=== PATIENT | female | born 1965 | race Caucasian/White ===

== ENCOUNTER 2017-10-06 22:39 | Inpatient (IN) | payer MEDICAID ==
[2017-10-07] MEDS: morphine 4 MG/ML VIAL IV (00:08)
[2017-10-07] MEDS: ONDANSETRON 4 MG INJ IV ×2 (00:09→20:38)
[2017-10-07] MEDS: CEFTRIAXONE 1 GM/50 ML (PMX) 50 ML IVPB (00:14)
[2017-10-07] MEDS: SOD CHLORIDE 0.9% 1,000 ML IV (00:14)
[2017-10-07 00:24] LABS: ADD MAN DIFF? NO
[2017-10-07 00:26] LABS: WHITE BLOOD COUNT 13.6 10^3/ul (4.8-10.8)
[2017-10-07 00:26] LABS: BASOPHIL # 0.1 10^3/ul (0.0-0.1); BASOPHILS % 0.4 % (0.0-2.0); EOSINOPHILS # 0.1 10^3/ul (0.0-0.5); EOSINOPHILS % 0.4 % (0.0-7.0); HEMATOCRIT 32.3 % (37.0-47.0); HEMOGLOBIN 10.9 g/dl (12.0-16.0); LYMPHOCYTES # 0.8 10^3/ul (0.8-2.9); LYMPHOCYTES % 5.9 % (15.0-51.0); MEAN CORPUSCULAR HEMOGLOBIN 30.3 pg (29.0-33.0); MEAN CORPUSCULAR HGB CONC 33.7 g/dl (32.0-37.0); MEAN CORPUSCULAR VOLUME 89.7 fl (82.0-101.0); MEAN PLATELET VOLUME 8.3 fl (7.4-10.4); MONOCYTE # 0.6 10^3/ul (0.3-0.9); MONOCYTES % 4.2 % (0.0-11.0); NEUTROPHIL # 12.1 10^3/ul (1.6-7.5); NEUTROPHILS % 88.7 % (39.0-77.0); PLATELET COUNT 438 10^3/UL (140-415); RED CELL DISTRIBUTION WIDTH 11.5 % (11.5-14.5)
[2017-10-07] MEDS: VANCOMYCIN 1 GM (PMX) 250 ML IVPB (00:42)
[2017-10-07 00:45] LABS: ALANINE AMINOTRANSFERASE 46 IU/L (13-69); ALBUMIN 4.1 g/dl (3.3-4.9); ALBUMIN/GLOBULIN RATIO 1.02; ALKALINE PHOSPHATASE 78 IU/L (42-121); ANION GAP 16 (8-16); ASPARTATE AMINO TRANSFERASE 55 IU/L (15-46); BILIRUBIN,INDIRECT 0.2 mg/dl (0-1.1); BILIRUBIN,TOTAL 0.2 mg/dl (0.2-1.3); BLOOD UREA NITROGEN 17 mg/dl (7-20); CALCIUM 11.1 mg/dl (8.4-10.2); CARBON DIOXIDE 25 mmol/L (21-31); CHLORIDE 102 mmol/L (97-110); CREATININE 0.79 mg/dl (0.44-1.00); GLUCOSE 122 mg/dl (70-220); POTASSIUM 3.9 mmol/L (3.5-5.1); SODIUM 139 mmol/L (135-144); TOTAL PROTEIN 8.1 g/dl (6.1-8.1)
[2017-10-07 01:08] LABS: TROPONIN-I < 0.012 ng/ml (0.000-0.120)
[2017-10-07] MEDS: SOD CHLORIDE 0.9% 100 ML ×2 (01:36→22:21)
[2017-10-07] MEDS: IOHEXOL 300MG/ML 150 ML BTL ×2 (01:36→22:22)
[2017-10-07] MEDS: morphine 2 MG INJ IV (05:08)
[2017-10-07 05:52] LABS: ADD MAN DIFF? NO
[2017-10-07 05:54] LABS: BASOPHILS % 0.3 % (0.0-2.0); EOSINOPHILS # 0.1 10^3/ul (0.0-0.5); EOSINOPHILS % 0.8 % (0.0-7.0); HEMATOCRIT 29.5 % (37.0-47.0); HEMOGLOBIN 9.9 g/dl (12.0-16.0); LYMPHOCYTES # 1.7 10^3/ul (0.8-2.9); LYMPHOCYTES % 18.1 % (15.0-51.0); MEAN CORPUSCULAR HEMOGLOBIN 30.4 pg (29.0-33.0); MEAN CORPUSCULAR HGB CONC 33.6 g/dl (32.0-37.0); MEAN CORPUSCULAR VOLUME 90.5 fl (82.0-101.0); MEAN PLATELET VOLUME 8.6 fl (7.4-10.4); MONOCYTES % 10.3 % (0.0-11.0); NEUTROPHIL # 6.7 10^3/ul (1.6-7.5); NEUTROPHILS % 70.3 % (39.0-77.0); PLATELET COUNT 391 10^3/UL (140-415); RED BLOOD COUNT 3.26 10^6/ul (4.20-5.40); RED CELL DISTRIBUTION WIDTH 11.9 % (11.5-14.5)
[2017-10-07 05:54] LABS: WHITE BLOOD COUNT 9.5 10^3/ul (4.8-10.8)
[2017-10-07 06:19] LABS: ANION GAP 12 (8-16); BLOOD UREA NITROGEN 15 mg/dl (7-20); CALCIUM 10.2 mg/dl (8.4-10.2); CARBON DIOXIDE 24 mmol/L (21-31); CHLORIDE 110 mmol/L (97-110); CREATININE 0.73 mg/dl (0.44-1.00); GLUCOSE 93 mg/dl (70-220); POTASSIUM 4.4 mmol/L (3.5-5.1); SODIUM 142 mmol/L (135-144)
[2017-10-07] MEDS ORDERED: HYDROCODONE/APAP (5/325) TAB PO (12:30)
[2017-10-07] MEDS: HYDROCODONE/APAP (5/325) TAB PO ×3 (12:38→22:08)
[2017-10-07] MEDS ORDERED: morphine 2 MG INJ IV (13:00)
[2017-10-07 13:42] LABS: PROTIME 13.3 Sec (11.9-14.9)
[2017-10-07 13:43] LABS: PARTIAL THROMBOPLASTIN TIME 28.8 Sec (25.0-35.0)
[2017-10-07] MEDS ORDERED: morphine LIQ (10 MG/5 ML) CUP PO (15:00)
[2017-10-07] MEDS: BARIUM SULF 2% 450 ML BTL (BERRY SMOOTHIE) PO (18:27)
[2017-10-08 05:48] LABS: ADD MAN DIFF? NO
[2017-10-08 05:53] LABS: BASOPHIL # 0.1 10^3/ul (0.0-0.1); BASOPHILS % 0.7 % (0.0-2.0); EOSINOPHILS # 0.3 10^3/ul (0.0-0.5); EOSINOPHILS % 4.2 % (0.0-7.0); HEMATOCRIT 28.9 % (37.0-47.0); HEMOGLOBIN 9.5 g/dl (12.0-16.0); LYMPHOCYTES # 1.9 10^3/ul (0.8-2.9); LYMPHOCYTES % 26.8 % (15.0-51.0); MEAN CORPUSCULAR HGB CONC 32.9 g/dl (32.0-37.0); MEAN CORPUSCULAR VOLUME 91.2 fl (82.0-101.0); MEAN PLATELET VOLUME 8.4 fl (7.4-10.4); NEUTROPHIL # 3.8 10^3/ul (1.6-7.5); NEUTROPHILS % 54.2 % (39.0-77.0); PLATELET COUNT 390 10^3/UL (140-415); RED BLOOD COUNT 3.17 10^6/ul (4.20-5.40); RED CELL DISTRIBUTION WIDTH 11.8 % (11.5-14.5)
[2017-10-08 05:53] LABS: WHITE BLOOD COUNT 7.1 10^3/ul (4.8-10.8)
[2017-10-08] MEDS: HYDROCODONE/APAP (5/325) TAB PO ×3 (06:07→23:55)
[2017-10-08 06:21] LABS: ANION GAP 14 (8-16); BLOOD UREA NITROGEN 11 mg/dl (7-20); CALCIUM 10.2 mg/dl (8.4-10.2); CARBON DIOXIDE 26 mmol/L (21-31); CHLORIDE 104 mmol/L (97-110); CREATININE 0.73 mg/dl (0.44-1.00); GLUCOSE 80 mg/dl (70-220); PHOSPHORUS 3.1 mg/dl (2.5-4.9); POTASSIUM 4.1 mmol/L (3.5-5.1); SODIUM 140 mmol/L (135-144)
[2017-10-08] MEDS: HYDROCHLOROTHIAZIDE 25 MG TAB PO (08:33)
[2017-10-08] MEDS: LISINOPRIL 10 MG TAB PO (08:34)
[2017-10-08] MEDS: ONDANSETRON 4 MG INJ IV (08:39)
[2017-10-08 11:22] LABS: CA27.29 182 U/mL (<38)
[2017-10-08 16:41] LABS: CANCER ANTIGEN 15-3 120 U/mL (<32)
[2017-10-09] MEDS: SENNA TAB PO ×3 (01:00→21:00)
[2017-10-09] MEDS: HYDROCODONE/APAP (5/325) TAB PO ×2 (08:24→22:53)
[2017-10-09] MEDS: HYDROCHLOROTHIAZIDE 25 MG TAB PO (08:24)
[2017-10-09] MEDS: LISINOPRIL 10 MG TAB PO (08:24)
[2017-10-09] MEDS: ONDANSETRON 4 MG INJ IV (12:50)
[2017-10-09] MEDS: MAGNESIUM HYDROXIDE 30ML CUP PO (12:53)
[2017-10-09] MEDS: DEXAMETHASONE 2 MG TAB PO ×3 (17:32→22:53)
[2017-10-10] MEDS: DEXAMETHASONE 2 MG TAB PO ×2 (08:30→13:07)
[2017-10-10] MEDS: SENNA TAB PO (08:31)
[2017-10-10] MEDS: LISINOPRIL 10 MG TAB PO (09:31)
[2017-10-10] MEDS: HYDROCHLOROTHIAZIDE 25 MG TAB PO (09:31)
== END 2017-10-10 15:05 | disposition home health service (06) | DRG 597 ==
LOC: E/R 22:39 → PP2 10-07 01:16
DX: C50.412 Malignant neoplasm of upper-outer quadrant of left female breast (principal); G93.6 Cerebral edema; C77.3 Secondary and unspecified malignant neoplasm of axilla and upper limb lymph nodes; C77.0 Secondary and unspecified malignant neoplasm of lymph nodes of head, face and neck; C79.31 Secondary malignant neoplasm of brain; I10 Essential (primary) hypertension
CPT/HCPCS: 36415; 70552; 71260; 74178; 76641; 78306; 80048; 80053; 83735; 84100; 84484; 85025; 85610; 85730; 86300; 96361; 96374; 96375; 99285-25; A9503

== ENCOUNTER 2017-11-30 21:07 | Inpatient (IN) | payer MEDICAID ==
[2017-11-30] MEDS: ONDANSETRON 4 MG INJ IV (22:28)
[2017-11-30] MEDS: morphine 4 MG/ML VIAL IV (22:28)
[2017-11-30] MEDS: ACETAMINOPHEN 325 MG TAB PO (22:28)
[2017-11-30] MEDS: SODIUM CHLORIDE 0.9% 1L BAG IV* (22:29)
[2017-11-30 22:30] LABS: WHITE BLOOD COUNT 8.2 10^3/ul (4.8-10.8)
[2017-11-30 22:30] LABS: ABNORMAL IP MESSAGE 1; HEMATOCRIT 23.9 % (37.0-47.0); HEMOGLOBIN 7.6 g/dl (12.0-16.0); MEAN CORPUSCULAR HEMOGLOBIN 27.9 pg (29.0-33.0); MEAN CORPUSCULAR HGB CONC 31.8 g/dl (32.0-37.0); MEAN CORPUSCULAR VOLUME 87.9 fl (82.0-101.0); MEAN PLATELET VOLUME 9.2 fl (7.4-10.4); PLATELET COUNT 194 10^3/UL (140-415); RED BLOOD COUNT 2.72 10^6/ul (4.20-5.40); RED CELL DISTRIBUTION WIDTH 14.1 % (11.5-14.5)
[2017-11-30 22:33] LABS: POSITIVE DIFF @See below
[2017-11-30 22:34] LABS: ADD MAN DIFF? YES
[2017-11-30 22:52] LABS: BAND NEUTROPHILS #M 0.6 10^3/ul (0.0-0.6); BAND NEUTROPHILS % (M) 8 % (0-4); BASOPHIL # 0.1 10^3/ul (0.0-0.1); BASOPHILS % 0.7 % (0.0-2.0); HYPOCHROMASIA 2+ (0-0); LYMPHOCYTES #M 0.4 10^3/ul (0.8-2.9); LYMPHOCYTES % (M) 5 % (15-51); MONOCYTE #M 0.1 10^3/ul (0.3-0.9); MONOCYTES % (M) 2 % (0-11); PLATELET ESTIMATE NORMAL; POLYCHROMASIA 3+ (0-0); REACTIVE LYMPHOCYTES #M 0.4 10^3/ul (0.0-0.0); REACTIVE LYMPHOCYTES% (M) 5 % (0-0); SEG NEUT #M 6.6 10^3/ul (1.6-7.5); SEGMENTED NEUTROPHILS (M) % 80 % (39-77); SMUDGE%M 17 % (0-0)
[2017-11-30 23:00] LABS: ALANINE AMINOTRANSFERASE 60 IU/L (13-69); ALBUMIN 2.4 g/dl (3.3-4.9); ALBUMIN/GLOBULIN RATIO 0.77; ALKALINE PHOSPHATASE 73 IU/L (42-121); ANION GAP 10 (8-16); ASPARTATE AMINO TRANSFERASE 109 IU/L (15-46); BILIRUBIN,INDIRECT 0.2 mg/dl (0-1.1); BILIRUBIN,TOTAL 0.2 mg/dl (0.2-1.3); BLOOD UREA NITROGEN 35 mg/dl (7-20); CALCIUM 9.5 mg/dl (8.4-10.2); CARBON DIOXIDE 29 mmol/L (21-31); CHLORIDE 101 mmol/L (97-110); CREATININE 0.93 mg/dl (0.44-1.00); GLUCOSE 82 mg/dl (70-220); LIPASE 30 U/L (23-300); POTASSIUM 3.9 mmol/L (3.5-5.1); SODIUM 136 mmol/L (135-144); TOTAL PROTEIN 5.5 g/dl (6.1-8.1)
[2017-11-30] MEDS: CEFEPIME 2GM/50 ML (PMX) 50 ML IVPB (23:00)
[2017-11-30 23:05] LABS: TROPONIN-I 0.013 ng/ml (0.000-0.120)
[2017-11-30 23:08] LABS: LACTIC ACID 1.5 mmol/L (0.5-2.0)
[2017-11-30 23:12] LABS: INR 0.93; PROTIME 12.5 Sec (11.9-14.9)
[2017-11-30 23:13] LABS: PARTIAL THROMBOPLASTIN TIME 30.3 Sec (25.0-35.0)
[2017-11-30] MEDS: VANCOMYCIN 1 GM (PMX) 250 ML IVPB (23:59)
[2017-12-01] MEDS: HYDROmorphONE 0.5 MG/0.5 ML SYG IV (00:17)
[2017-12-01] MEDS ORDERED: ALBUTEROL/IPRATROPIUM (NEB) 3 ML AMP HHN (00:30)
[2017-12-01] MEDS ORDERED: NACL 0.9% 3 ML SYG IV (00:30)
[2017-12-01 01:48] LABS: LACTIC ACID 0.9 mmol/L (0.5-2.0)
[2017-12-01] MEDS: SOD CHLORIDE 0.9% 1,000 ML IV ×3 (02:21→13:15)
[2017-12-01] MEDS: HYDROCODONE/APAP (5/325) TAB PO ×3 (04:26→21:46)
[2017-12-01 06:06] LABS: ABNORMAL IP MESSAGE 1; HEMOGLOBIN 7.1 g/dl (12.0-16.0); MEAN CORPUSCULAR HEMOGLOBIN 27.5 pg (29.0-33.0); MEAN CORPUSCULAR HGB CONC 30.9 g/dl (32.0-37.0); MEAN CORPUSCULAR VOLUME 89.1 fl (82.0-101.0); MEAN PLATELET VOLUME 9.6 fl (7.4-10.4); PLATELET COUNT 173 10^3/UL (140-415); RED BLOOD COUNT 2.58 10^6/ul (4.20-5.40); RED CELL DISTRIBUTION WIDTH 14.1 % (11.5-14.5)
[2017-12-01 06:06] LABS: WHITE BLOOD COUNT 4.6 10^3/ul (4.8-10.8)
[2017-12-01 06:12] LABS: ADD MAN DIFF? YES; POSITIVE DIFF @See below
[2017-12-01 06:38] LABS: LACTIC ACID 1.4 mmol/L (0.5-2.0)
[2017-12-01 06:38] LABS: IRON 63 ug/dl (35-150)
[2017-12-01 06:47] LABS: % IRON SATURATION 27 % SAT (22-52); TOTAL IRON BINDING CAPACITY 234 ug/dl (241-421)
[2017-12-01 06:53] LABS: ALANINE AMINOTRANSFERASE 63 IU/L (13-69); ALBUMIN/GLOBULIN RATIO 0.74; ALKALINE PHOSPHATASE 60 IU/L (42-121); ANION GAP 7 (8-16); ASPARTATE AMINO TRANSFERASE 103 IU/L (15-46); BILIRUBIN,INDIRECT 0.1 mg/dl (0-1.1); BILIRUBIN,TOTAL 0.1 mg/dl (0.2-1.3); BLOOD UREA NITROGEN 28 mg/dl (7-20); CALCIUM 8.2 mg/dl (8.4-10.2); CARBON DIOXIDE 24 mmol/L (21-31); CHLORIDE 109 mmol/L (97-110); CREATININE 0.72 mg/dl (0.44-1.00); GLUCOSE 83 mg/dl (70-220); POTASSIUM 3.3 mmol/L (3.5-5.1); SODIUM 137 mmol/L (135-144); TOTAL PROTEIN 4.7 g/dl (6.1-8.1)
[2017-12-01 07:15] LABS: ADD UMIC YES; UR ASCORBIC ACID NEGATIVE (NEGATIVE); UR BACTERIA MANY /HPF (NONE SEEN); UR BILIRUBIN (Dip) NEGATIVE (NEGATIVE); UR BLOOD (Dip) 1+ mg/dL (NEGATIVE); UR CLARITY CLOUDY (CLEAR); UR COLOR YELLOW (YELLOW); UR GLUCOSE (Dip) NEGATIVE (NEGATIVE); UR KETONES (Dip) TRACE mg/dL (NEGATIVE); UR LEUKOCYTE ESTERASE (Dip) 3+ Leu/ul (NEGATIVE); UR NITRITE (Dip) POSITIVE (NEGATIVE); UR NONSQUAMOUS EPITHELIAL CELL 1 /HPF (NONE SEEN); UR RBC 3 /HPF (0-5); UR SPECIFIC GRAVITY (Dip) 1.014 (1.003-1.030); UR TOTAL PROTEIN (Dip) NEGATIVE (NEGATIVE); UR UROBILINOGEN (Dip) NEGATIVE (NEGATIVE); UR WBC > 182 /HPF (0-5)
[2017-12-01 08:22] LABS: BAND NEUTROPHILS % (M) 1 % (0-4); LYMPHOCYTES #M 0.1 10^3/ul (0.8-2.9); LYMPHOCYTES % (M) 4 % (15-51); PLATELET ESTIMATE NORMAL; SEG NEUT #M 4.4 10^3/ul (1.6-7.5); SEGMENTED NEUTROPHILS (M) % 95 % (39-77); SMUDGE%M 8 % (0-0)
[2017-12-01] MEDS: CEFEPIME 1GM/50 ML (PMX) 50 ML IVPB ×2 (08:22→22:06)
[2017-12-01] MEDS: ONDANSETRON 4 MG INJ IV ×2 (08:28→17:49)
[2017-12-01] MEDS ORDERED: ENOXAPARIN 40 MG/0.4 ML SYG SC (09:00)
[2017-12-01] MEDS: POTASSIUM CHLORIDE 20 MEQ POWDER FOR ORAL SOLN PO (15:55)
[2017-12-01] MEDS: morphine 2 MG INJ IV (15:55)
[2017-12-01] MEDS ORDERED: morphine 2 MG INJ IV (18:00)
[2017-12-02] MEDS: ONDANSETRON 4 MG INJ IV (05:25)
[2017-12-02 05:28] LABS: ABNORMAL IP MESSAGE 1; HEMATOCRIT 23.4 % (37.0-47.0); HEMOGLOBIN 7.3 g/dl (12.0-16.0); MEAN CORPUSCULAR HEMOGLOBIN 27.7 pg (29.0-33.0); MEAN CORPUSCULAR HGB CONC 31.2 g/dl (32.0-37.0); MEAN CORPUSCULAR VOLUME 88.6 fl (82.0-101.0); MEAN PLATELET VOLUME 9.4 fl (7.4-10.4); PLATELET COUNT 163 10^3/UL (140-415); RED BLOOD COUNT 2.64 10^6/ul (4.20-5.40); RED CELL DISTRIBUTION WIDTH 13.9 % (11.5-14.5)
[2017-12-02 05:40] LABS: ADD MAN DIFF? YES; POSITIVE DIFF @See below
[2017-12-02 05:42] LABS: ANION GAP 7 (8-16); BLOOD UREA NITROGEN 19 mg/dl (7-20); CALCIUM 7.9 mg/dl (8.4-10.2); CARBON DIOXIDE 24 mmol/L (21-31); CHLORIDE 111 mmol/L (97-110); CREATININE 0.63 mg/dl (0.44-1.00); GLUCOSE 66 mg/dl (70-220); MAGNESIUM 1.7 mg/dl (1.7-2.5); PHOSPHORUS 3.3 mg/dl (2.5-4.9); POTASSIUM 3.7 mmol/L (3.5-5.1); SODIUM 138 mmol/L (135-144)
[2017-12-02] MEDS: HYDROCODONE/APAP (5/325) TAB PO ×3 (07:52→21:03)
[2017-12-02 08:32] LABS: BAND NEUTROPHILS #M 0.1 10^3/ul (0.0-0.6); BAND NEUTROPHILS % (M) 11 % (0-4); BASOPHILS % (M) 1 % (0-2); EOSINOPHILS % (M) 2 % (0-7); ERYTHROBLAST% (NRBC) (M) 2 % (0-0); LYMPHOCYTES #M 0.4 10^3/ul (0.8-2.9); LYMPHOCYTES % (M) 41 % (15-51); PLATELET ESTIMATE NORMAL; SEG NEUT #M 0.5 10^3/ul (1.6-7.5); SEGMENTED NEUTROPHILS (M) % 45 % (39-77); SMUDGE%M 13 % (0-0)
[2017-12-02] MEDS: CEFEPIME 1GM/50 ML (PMX) 50 ML IVPB ×2 (08:53→21:00)
[2017-12-02] MEDS ORDERED: morphine LIQ (10 MG/5 ML) CUP PO (16:00)
[2017-12-02] MEDS: FILGRASTIM 300 MCG INJ SC (17:43)
[2017-12-03] MEDS: HYDROCODONE/APAP (5/325) TAB PO ×3 (08:17→21:22)
[2017-12-03] MEDS: CEFEPIME 1GM/50 ML (PMX) 50 ML IVPB ×2 (08:18→21:16)
[2017-12-03 09:53] LABS: WHITE BLOOD COUNT 0.5 10^3/ul (4.8-10.8)
[2017-12-03 09:53] LABS: ABNORMAL IP MESSAGE 1; HEMATOCRIT 24.8 % (37.0-47.0); HEMOGLOBIN 7.8 g/dl (12.0-16.0); MEAN CORPUSCULAR HEMOGLOBIN 27.8 pg (29.0-33.0); MEAN CORPUSCULAR HGB CONC 31.5 g/dl (32.0-37.0); MEAN CORPUSCULAR VOLUME 88.3 fl (82.0-101.0); MEAN PLATELET VOLUME 8.9 fl (7.4-10.4); PLATELET COUNT 151 10^3/UL (140-415); RED BLOOD COUNT 2.81 10^6/ul (4.20-5.40); RED CELL DISTRIBUTION WIDTH 13.4 % (11.5-14.5)
[2017-12-03 09:54] LABS: POSITIVE DIFF @See below
[2017-12-03 09:55] LABS: ADD MAN DIFF? YES
[2017-12-03 11:13] LABS: BAND NEUTROPHILS % (M) 8 % (0-4); BASOPHILS % (M) 1 % (0-2); GIANT THROMBO% (M) 3 % (0-0); LYMPHOCYTES #M 0.2 10^3/ul (0.8-2.9); LYMPHOCYTES % (M) 54 % (15-51); METAMYELOCYTES %M 1 % (0-0); MONOCYTES % (M) 12 % (0-11); MYELOCYTES % (M) 2 % (0-0); PLATELET ESTIMATE NORMAL; POLYCHROMASIA 2+ (0-0); REACTIVE LYMPHOCYTES% (M) 2 % (0-0); SEG NEUT #M 0.1 10^3/ul (1.6-7.5); SEGMENTED NEUTROPHILS (M) % 20 % (39-77); SMUDGE%M 26 % (0-0)
[2017-12-03] MEDS ORDERED: VANCOMYCIN IV PER PHARMACY XX (12:00)
[2017-12-03] MEDS: VANCOMYCIN 1.5 GM in SOD CHLORIDE 0.9% 250 ML IVPB (13:41)
[2017-12-03] MEDS: FILGRASTIM 300 MCG INJ SC (16:14)
[2017-12-04] MEDS ORDERED: VANCOMYCIN 750 MG in SOD CHLORIDE 0.9% 150 ML IVPB (01:00)
[2017-12-04] MEDS: VANCOMYCIN 1 GM 250 ML IVPB ×2 (02:42→14:25)
[2017-12-04] MEDS: HYDROCODONE/APAP (5/325) TAB PO ×3 (04:03→18:09)
[2017-12-04 06:46] LABS: WHITE BLOOD COUNT 0.7 10^3/ul (4.8-10.8)
[2017-12-04 06:46] LABS: ABNORMAL IP MESSAGE 1; HEMATOCRIT 23.2 % (37.0-47.0); HEMOGLOBIN 7.3 g/dl (12.0-16.0); MEAN CORPUSCULAR HGB CONC 31.5 g/dl (32.0-37.0); MEAN CORPUSCULAR VOLUME 88.9 fl (82.0-101.0); MEAN PLATELET VOLUME 9.6 fl (7.4-10.4); PLATELET COUNT 173 10^3/UL (140-415); RED BLOOD COUNT 2.61 10^6/ul (4.20-5.40); RED CELL DISTRIBUTION WIDTH 13.7 % (11.5-14.5)
[2017-12-04 06:55] LABS: ADD MAN DIFF? YES; POSITIVE DIFF @See below
[2017-12-04 08:32] LABS: BAND NEUTROPHILS % (M) 7 % (0-4); BASOPHILS % (M) 1 % (0-2); EOSINOPHILS % (M) 2 % (0-7); ERYTHROBLAST% (NRBC) (M) 5 % (0-0); GIANT THROMBO% (M) 6 % (0-0); LYMPHOCYTES #M 0.4 10^3/ul (0.8-2.9); LYMPHOCYTES % (M) 59 % (15-51); MONOCYTES % (M) 13 % (0-11); MYELOCYTES % (M) 1 % (0-0); PLATELET ESTIMATE NORMAL; POLYCHROMASIA 3+ (0-0); SEG NEUT #M 0.1 10^3/ul (1.6-7.5); SEGMENTED NEUTROPHILS (M) % 17 % (39-77); SMUDGE%M 15 % (0-0)
[2017-12-04] MEDS: CEFEPIME 1GM/50 ML (PMX) 50 ML IVPB ×2 (08:46→20:41)
[2017-12-04] MEDS: DIPHENOXYLATE/ATROPINE TAB PO ×2 (12:09→18:09)
[2017-12-04] MEDS: FILGRASTIM 300 MCG INJ SC (16:28)
[2017-12-04] MEDS: ONDANSETRON 4 MG INJ IV (17:59)
[2017-12-05] MEDS: HYDROCODONE/APAP (5/325) TAB PO ×4 (01:34→20:27)
[2017-12-05] MEDS: ONDANSETRON 4 MG INJ IV ×4 (01:34→23:24)
[2017-12-05 03:18] LABS: VANCOMYCIN,TROUGH 12.4 ug/ml (10.0-20.0)
[2017-12-05] MEDS: VANCOMYCIN 1 GM 250 ML IVPB ×2 (03:47→13:46)
[2017-12-05] MEDS: DIPHENOXYLATE/ATROPINE TAB PO ×2 (06:38→18:46)
[2017-12-05] MEDS: CEFEPIME 1GM/50 ML (PMX) 50 ML IVPB ×2 (08:34→20:27)
[2017-12-05 09:14] LABS: WHITE BLOOD COUNT 5.2 10^3/ul (4.8-10.8)
[2017-12-05 09:14] LABS: ABNORMAL IP MESSAGE 1; HEMATOCRIT 27.7 % (37.0-47.0); HEMOGLOBIN 8.5 g/dl (12.0-16.0); MEAN CORPUSCULAR HEMOGLOBIN 27.2 pg (29.0-33.0); MEAN CORPUSCULAR HGB CONC 30.7 g/dl (32.0-37.0); MEAN CORPUSCULAR VOLUME 88.5 fl (82.0-101.0); NUCLEATED RED BLOOD CELLS% 0.4 /100WBC (0.0-0.0); RED BLOOD COUNT 3.13 10^6/ul (4.20-5.40); RED CELL DISTRIBUTION WIDTH 13.5 % (11.5-14.5)
[2017-12-05 09:17] LABS: ADD MAN DIFF? YES; PLATELET COUNT 208 10^3/UL (140-415); POSITIVE DIFF @See below
[2017-12-05 09:43] LABS: ANION GAP 14 (8-16); BLOOD UREA NITROGEN 11 mg/dl (7-20); CALCIUM 7.9 mg/dl (8.4-10.2); CARBON DIOXIDE 19 mmol/L (21-31); CHLORIDE 111 mmol/L (97-110); CREATININE 0.42 mg/dl (0.44-1.00); GLUCOSE 82 mg/dl (70-220); POTASSIUM 3.8 mmol/L (3.5-5.1); SODIUM 140 mmol/L (135-144)
[2017-12-05 09:56] LABS: BAND NEUTROPHILS #M 0.4 10^3/ul (0.0-0.6); BAND NEUTROPHILS % (M) 9 % (0-4); LYMPHOCYTES #M 0.6 10^3/ul (0.8-2.9); LYMPHOCYTES % (M) 12 % (15-51); MONOCYTES % (M) 19 % (0-11); REACTIVE LYMPHOCYTES% (M) 1 % (0-0); SEGMENTED NEUTROPHILS (M) % 58 % (39-77)
[2017-12-05 09:57] LABS: BASOPHILS % (M) 1 % (0-2); BURR CELLS 2+ (0-0); MONOCYTE #M 0.9 10^3/ul (0.3-0.9); PLATELET ESTIMATE NORMAL; POIKILOCYTOSIS 2+ (0-0); POLYCHROMASIA 3+ (0-0); SMUDGE%M 2 % (0-0)
[2017-12-05] MEDS: METOCLOPRAMIDE 10 MG INJ IV (18:41)
[2017-12-05] MEDS: LOPERAMIDE 2 MG CAP PO (20:39)
[2017-12-06] MEDS: HYDROCODONE/APAP (5/325) TAB PO ×3 (02:59→18:36)
[2017-12-06] MEDS: DIPHENOXYLATE/ATROPINE TAB PO ×2 (03:09→08:43)
[2017-12-06 06:55] LABS: ADD MAN DIFF? NO
[2017-12-06 06:57] LABS: WHITE BLOOD COUNT 8.5 10^3/ul (4.8-10.8)
[2017-12-06 06:57] LABS: ABNORMAL IP MESSAGE 1; BASOPHILS % 0.4 % (0.0-2.0); EOSINOPHILS % 0.2 % (0.0-7.0); HEMATOCRIT 24.7 % (37.0-47.0); HEMOGLOBIN 7.7 g/dl (12.0-16.0); LYMPHOCYTES # 0.6 10^3/ul (0.8-2.9); LYMPHOCYTES % 6.7 % (15.0-51.0); MEAN CORPUSCULAR HEMOGLOBIN 26.9 pg (29.0-33.0); MEAN CORPUSCULAR HGB CONC 31.2 g/dl (32.0-37.0); MEAN CORPUSCULAR VOLUME 86.4 fl (82.0-101.0); MEAN PLATELET VOLUME 9.6 fl (7.4-10.4); MONOCYTE # 1.2 10^3/ul (0.3-0.9); MONOCYTES % 13.5 % (0.0-11.0); NEUTROPHILS % 69.9 % (39.0-77.0); NUCLEATED RED BLOOD CELLS% 0.5 /100WBC (0.0-0.0); PLATELET COUNT 211 10^3/UL (140-415); RED BLOOD COUNT 2.86 10^6/ul (4.20-5.40); RED CELL DISTRIBUTION WIDTH 13.6 % (11.5-14.5)
[2017-12-06 07:09] LABS: POSITIVE DIFF @See below
[2017-12-06 08:41] LABS: BAND NEUTROPHILS #M 1.4 10^3/ul (0.0-0.6); BAND NEUTROPHILS % (M) 17 % (0-4); GIANT THROMBO% (M) 1 % (0-0); LYMPHOCYTES #M 0.5 10^3/ul (0.8-2.9); LYMPHOCYTES % (M) 7 % (15-51); MONOCYTE #M 0.9 10^3/ul (0.3-0.9); MONOCYTES % (M) 11 % (0-11); MYELOCYTES % (M) 1 % (0-0); PLATELET ESTIMATE NORMAL; POLYCHROMASIA 2+ (0-0); REACTIVE LYMPHOCYTES #M 0.3 10^3/ul (0.0-0.0); REACTIVE LYMPHOCYTES% (M) 4 % (0-0); SEG NEUT #M 5.2 10^3/ul (1.6-7.5); SEGMENTED NEUTROPHILS (M) % 60 % (39-77); SMUDGE%M 30 % (0-0)
[2017-12-06] MEDS: CEFEPIME 1GM/50 ML (PMX) 50 ML IVPB (08:43)
[2017-12-06] MEDS: LOPERAMIDE 2 MG CAP PO (13:30)
[2017-12-06] MEDS: DEXTROSE 5%-0.45% NACL 1,000 ML IV (15:00)
[2017-12-06] MEDS: ONDANSETRON 4 MG INJ IV (15:14)
[2017-12-06] MEDS: OCTREOTIDE 50 MCG INJ SC (20:23)
[2017-12-07] MEDS: HYDROCODONE/APAP (5/325) TAB PO ×3 (00:19→19:56)
[2017-12-07 04:07] LABS: IMMEDIATE SPIN CROSSMATCH 1 2
[2017-12-07 09:21] LABS: ABNORMAL IP MESSAGE 1; HEMATOCRIT 29.5 % (37.0-47.0); HEMOGLOBIN 9.5 g/dl (12.0-16.0); MEAN CORPUSCULAR HEMOGLOBIN 26.9 pg (29.0-33.0); MEAN CORPUSCULAR HGB CONC 32.2 g/dl (32.0-37.0); MEAN CORPUSCULAR VOLUME 83.6 fl (82.0-101.0); MEAN PLATELET VOLUME 9.2 fl (7.4-10.4); NUCLEATED RED BLOOD CELLS% 0.8 /100WBC (0.0-0.0); PLATELET COUNT 207 10^3/UL (140-415); RED BLOOD COUNT 3.53 10^6/ul (4.20-5.40); RED CELL DISTRIBUTION WIDTH 14.6 % (11.5-14.5)
[2017-12-07 09:21] LABS: WHITE BLOOD COUNT 7.9 10^3/ul (4.8-10.8)
[2017-12-07 09:23] LABS: POSITIVE DIFF @See below
[2017-12-07 09:24] LABS: ADD MAN DIFF? YES
[2017-12-07] MEDS: DEXTROSE 5%-0.45% NACL 1,000 ML IV (09:36)
[2017-12-07] MEDS: ONDANSETRON 4 MG INJ IV (09:36)
[2017-12-07] MEDS: PEG/ELECTROLYTES 4L BTL PO (09:37)
[2017-12-07] MEDS: OCTREOTIDE 50 MCG INJ SC ×3 (09:37→21:00)
[2017-12-07 10:07] LABS: ANISOCYTOSIS 1+ (0-0); BAND NEUTROPHILS #M 0.1 10^3/ul (0.0-0.6); BAND NEUTROPHILS % (M) 2 % (0-4); LYMPHOCYTES #M 0.4 10^3/ul (0.8-2.9); LYMPHOCYTES % (M) 6 % (15-51); MICROCYTOSIS 1+ (0-0); MONOCYTE #M 1.1 10^3/ul (0.3-0.9); MONOCYTES % (M) 14 % (0-11); MYELOCYTES #M 0.2 10^3/ul (0.0-0.0); MYELOCYTES % (M) 3 % (0-0); PLATELET ESTIMATE NORMAL; POLYCHROMASIA 2+ (0-0); PROMYELOCYTES % (M) 1 % (0-0); SEG NEUT #M 5.9 10^3/ul (1.6-7.5); SEGMENTED NEUTROPHILS (M) % 74 % (39-77); SMUDGE%M 16 % (0-0)
[2017-12-08] MEDS: HYDROCODONE/APAP (5/325) TAB PO ×3 (05:22→23:08)
[2017-12-08 05:58] LABS: ABNORMAL IP MESSAGE 1; HEMATOCRIT 30.9 % (37.0-47.0); HEMOGLOBIN 9.9 g/dl (12.0-16.0); MEAN CORPUSCULAR HEMOGLOBIN 26.7 pg (29.0-33.0); MEAN CORPUSCULAR VOLUME 83.3 fl (82.0-101.0); MEAN PLATELET VOLUME 9.1 fl (7.4-10.4); NUCLEATED RED BLOOD CELLS% 0.6 /100WBC (0.0-0.0); PLATELET COUNT 215 10^3/UL (140-415); RED BLOOD COUNT 3.71 10^6/ul (4.20-5.40); RED CELL DISTRIBUTION WIDTH 15.7 % (11.5-14.5)
[2017-12-08 05:58] LABS: WHITE BLOOD COUNT 7.8 10^3/ul (4.8-10.8)
[2017-12-08 06:17] LABS: ADD MAN DIFF? YES; POSITIVE DIFF @See below
[2017-12-08 07:52] LABS: ANISOCYTOSIS 1+ (0-0); BAND NEUTROPHILS #M 0.2 10^3/ul (0.0-0.6); BAND NEUTROPHILS % (M) 3 % (0-4); LYMPHOCYTES #M 0.7 10^3/ul (0.8-2.9); LYMPHOCYTES % (M) 9 % (15-51); METAMYELOCYTES #M 0.1 10^3/ul (0.0-0.0); METAMYELOCYTES %M 2 % (0-0); MONOCYTE #M 0.3 10^3/ul (0.3-0.9); MONOCYTES % (M) 4 % (0-11); PLATELET ESTIMATE NORMAL; POLYCHROMASIA 2+ (0-0); SEG NEUT #M 6.4 10^3/ul (1.6-7.5); SEGMENTED NEUTROPHILS (M) % 82 % (39-77); SMUDGE%M 7 % (0-0)
[2017-12-08] MEDS: OCTREOTIDE 50 MCG INJ SC ×3 (09:00→22:25)
[2017-12-08 13:20] LABS: ABNORMAL IP MESSAGE 1; HEMATOCRIT 36.5 % (37.0-47.0); HEMOGLOBIN 11.4 g/dl (12.0-16.0); MEAN CORPUSCULAR HEMOGLOBIN 27.1 pg (29.0-33.0); MEAN CORPUSCULAR HGB CONC 31.2 g/dl (32.0-37.0); MEAN CORPUSCULAR VOLUME 86.7 fl (82.0-101.0); MEAN PLATELET VOLUME 9.3 fl (7.4-10.4); NUCLEATED RED BLOOD CELLS% 0.3 /100WBC (0.0-0.0); PLATELET COUNT 200 10^3/UL (140-415); RED BLOOD COUNT 4.21 10^6/ul (4.20-5.40); RED CELL DISTRIBUTION WIDTH 15.8 % (11.5-14.5)
[2017-12-08 13:27] LABS: ADD MAN DIFF? YES; POSITIVE DIFF @See below
[2017-12-08 13:36] LABS: ANION GAP 12 (8-16); BLOOD UREA NITROGEN 14 mg/dl (7-20); CALCIUM 8.5 mg/dl (8.4-10.2); CARBON DIOXIDE 23 mmol/L (21-31); CHLORIDE 107 mmol/L (97-110); CREATININE 0.51 mg/dl (0.44-1.00); GLUCOSE 81 mg/dl (70-220); POTASSIUM 3.6 mmol/L (3.5-5.1); SODIUM 138 mmol/L (135-144)
[2017-12-08 13:56] LABS: ANISOCYTOSIS 1+ (0-0); BAND NEUTROPHILS #M 0.1 10^3/ul (0.0-0.6); BAND NEUTROPHILS % (M) 2 % (0-4); BASOPHILS % (M) 1 % (0-2); BURR CELLS 1+ (0-0); LYMPHOCYTES #M 0.8 10^3/ul (0.8-2.9); LYMPHOCYTES % (M) 11 % (15-51); METAMYELOCYTES %M 1 % (0-0); MONOCYTE #M 0.4 10^3/ul (0.3-0.9); MONOCYTES % (M) 6 % (0-11); MYELOCYTES % (M) 1 % (0-0); OVALOCYTES 1+ (0-0); PLATELET ESTIMATE INCREASED; POIKILOCYTOSIS 1+ (0-0); POLYCHROMASIA 1+ (0-0); SEG NEUT #M 6.2 10^3/ul (1.6-7.5); SEGMENTED NEUTROPHILS (M) % 78 % (39-77); SMUDGE%M 36 % (0-0); TARGET CELLS 1+ (0-0)
[2017-12-08] MEDS: PANTOPRAZOLE 40 MG INJ IV (17:57)
[2017-12-09] MEDS: HYDROCODONE/APAP (5/325) TAB PO ×3 (05:15→20:56)
[2017-12-09] MEDS: PANTOPRAZOLE 40 MG INJ IV ×2 (05:15→17:52)
[2017-12-09 05:29] LABS: WHITE BLOOD COUNT 7.9 10^3/ul (4.8-10.8)
[2017-12-09 05:29] LABS: ABNORMAL IP MESSAGE 1; HEMATOCRIT 30.7 % (37.0-47.0); HEMOGLOBIN 9.9 g/dl (12.0-16.0); MEAN CORPUSCULAR HEMOGLOBIN 27.1 pg (29.0-33.0); MEAN CORPUSCULAR HGB CONC 32.2 g/dl (32.0-37.0); MEAN CORPUSCULAR VOLUME 84.1 fl (82.0-101.0); NUCLEATED RED BLOOD CELLS% 0.3 /100WBC (0.0-0.0); PLATELET COUNT 211 10^3/UL (140-415); RED BLOOD COUNT 3.65 10^6/ul (4.20-5.40)
[2017-12-09 05:31] LABS: ADD MAN DIFF? YES; POSITIVE DIFF @See below
[2017-12-09 07:56] LABS: ANISOCYTOSIS 1+ (0-0); BAND NEUTROPHILS #M 0.3 10^3/ul (0.0-0.6); BAND NEUTROPHILS % (M) 5 % (0-4); BASOPHILS % (M) 1 % (0-2); LYMPHOCYTES #M 0.8 10^3/ul (0.8-2.9); LYMPHOCYTES % (M) 11 % (15-51); MICROCYTOSIS 1+ (0-0); MONOCYTE #M 0.8 10^3/ul (0.3-0.9); MONOCYTES % (M) 11 % (0-11); PLATELET ESTIMATE NORMAL; POLYCHROMASIA 2+ (0-0); REACTIVE LYMPHOCYTES #M 0.2 10^3/ul (0.0-0.0); REACTIVE LYMPHOCYTES% (M) 3 % (0-0); SEG NEUT #M 5.5 10^3/ul (1.6-7.5); SEGMENTED NEUTROPHILS (M) % 69 % (39-77); SMUDGE%M 8 % (0-0)
[2017-12-09] MEDS: OCTREOTIDE 50 MCG INJ SC ×3 (09:49→20:57)
[2017-12-09] MEDS: LOPERAMIDE 2 MG CAP PO (09:49)
[2017-12-09] MEDS: ONDANSETRON 4 MG INJ IV (09:49)
[2017-12-09] MEDS: FENTAnyl 50 MCG/ML VIAL (17:00)
[2017-12-09] MEDS: MIDAZOLAM 1 MG/ML 2 ML INJ (17:00)
[2017-12-09] MEDS: PROPOFOL 20 ML (17:00)
[2017-12-10] MEDS: HYDROCODONE/APAP (5/325) TAB PO ×4 (02:53→22:25)
[2017-12-10] MEDS: PANTOPRAZOLE 40 MG INJ IV ×2 (06:02→17:55)
[2017-12-10 06:34] LABS: WHITE BLOOD COUNT 7.5 10^3/ul (4.8-10.8)
[2017-12-10 06:34] LABS: ABNORMAL IP MESSAGE 1; HEMATOCRIT 27.3 % (37.0-47.0); HEMOGLOBIN 8.7 g/dl (12.0-16.0); MEAN CORPUSCULAR HEMOGLOBIN 26.9 pg (29.0-33.0); MEAN CORPUSCULAR HGB CONC 31.9 g/dl (32.0-37.0); MEAN CORPUSCULAR VOLUME 84.5 fl (82.0-101.0); PLATELET COUNT 180 10^3/UL (140-415); RED BLOOD COUNT 3.23 10^6/ul (4.20-5.40); RED CELL DISTRIBUTION WIDTH 15.2 % (11.5-14.5)
[2017-12-10 06:36] LABS: POSITIVE DIFF @See below
[2017-12-10 06:37] LABS: ADD MAN DIFF? YES
[2017-12-10 09:23] LABS: BAND NEUTROPHILS #M 0.3 10^3/ul (0.0-0.6); BAND NEUTROPHILS % (M) 4 % (0-4); LYMPHOCYTES #M 0.9 10^3/ul (0.8-2.9); LYMPHOCYTES % (M) 13 % (15-51); MONOCYTE #M 0.6 10^3/ul (0.3-0.9); MONOCYTES % (M) 9 % (0-11); MYELOCYTES #M 0.1 10^3/ul (0.0-0.0); MYELOCYTES % (M) 2 % (0-0); PLATELET ESTIMATE NORMAL; POLYCHROMASIA 1+ (0-0); REACTIVE LYMPHOCYTES #M 0.3 10^3/ul (0.0-0.0); REACTIVE LYMPHOCYTES% (M) 5 % (0-0); SEGMENTED NEUTROPHILS (M) % 67 % (39-77); SMUDGE%M 19 % (0-0)
[2017-12-10] MEDS: OCTREOTIDE 50 MCG INJ SC ×3 (09:49→21:22)
[2017-12-10] MEDS: LOPERAMIDE 2 MG CAP PO (13:39)
[2017-12-10] MEDS ORDERED: BISMUTH SUBSALICYLATE 120 ML BTL PO (19:00)
[2017-12-10] MEDS ORDERED: CLARITHROMYCIN 250 MG TAB PO (21:00)
[2017-12-10] MEDS: CLARITHROMYCIN 500 MG TAB PO (21:20)
[2017-12-10] MEDS: AMOXICILLIN 500 MG CAP PO (22:24)
[2017-12-11] MEDS: HYDROCODONE/APAP (5/325) TAB PO ×3 (04:33→20:25)
[2017-12-11] MEDS: PANTOPRAZOLE 40 MG INJ IV ×2 (05:36→18:01)
[2017-12-11] MEDS: AMOXICILLIN 500 MG CAP PO ×3 (05:36→22:02)
[2017-12-11 06:48] LABS: HEMATOCRIT 28.9 % (37.0-47.0); HEMOGLOBIN 9.2 g/dl (12.0-16.0); MEAN CORPUSCULAR HEMOGLOBIN 26.7 pg (29.0-33.0); MEAN CORPUSCULAR HGB CONC 31.8 g/dl (32.0-37.0); MEAN PLATELET VOLUME 8.7 fl (7.4-10.4); PLATELET COUNT 213 10^3/UL (140-415); RED BLOOD COUNT 3.44 10^6/ul (4.20-5.40)
[2017-12-11 06:48] LABS: WHITE BLOOD COUNT 6.8 10^3/ul (4.8-10.8)
[2017-12-11 06:56] LABS: ADD MAN DIFF? YES; POSITIVE DIFF @See below
[2017-12-11] MEDS: CLARITHROMYCIN 500 MG TAB PO ×2 (08:59→20:24)
[2017-12-11] MEDS: OCTREOTIDE 50 MCG INJ SC ×3 (09:00→20:24)
[2017-12-11 09:41] LABS: ANISOCYTOSIS 1+ (0-0); BAND NEUTROPHILS #M 0.6 10^3/ul (0.0-0.6); BAND NEUTROPHILS % (M) 9 % (0-4); LYMPHOCYTES #M 0.8 10^3/ul (0.8-2.9); LYMPHOCYTES % (M) 13 % (15-51); MICROCYTOSIS 1+ (0-0); MONOCYTE #M 0.3 10^3/ul (0.3-0.9); MONOCYTES % (M) 5 % (0-11); MYELOCYTES % (M) 1 % (0-0); PLATELET ESTIMATE NORMAL; POLYCHROMASIA 2+ (0-0); REACTIVE LYMPHOCYTES #M 0.2 10^3/ul (0.0-0.0); REACTIVE LYMPHOCYTES% (M) 3 % (0-0); SEG NEUT #M 4.7 10^3/ul (1.6-7.5); SEGMENTED NEUTROPHILS (M) % 69 % (39-77); SMUDGE%M 29 % (0-0)
[2017-12-11] MEDS: ONDANSETRON 4 MG INJ IV (10:10)
[2017-12-11] MEDS: DIPHENOXYLATE/ATROPINE TAB PO (10:15)
[2017-12-11] MEDS: MEGESTROL (40 MG/ML) 10ML CUP PO (20:23)
[2017-12-11] MEDS: LOPERAMIDE 2 MG CAP PO (22:05)
[2017-12-12] MEDS: HYDROCODONE/APAP (5/325) TAB PO ×3 (03:15→18:41)
[2017-12-12] MEDS: AMOXICILLIN 500 MG CAP PO ×3 (05:14→22:14)
[2017-12-12] MEDS: PANTOPRAZOLE 40 MG INJ IV ×2 (05:14→19:41)
[2017-12-12 05:51] LABS: ADD MAN DIFF? NO
[2017-12-12 05:54] LABS: BASOPHILS % 0.4 % (0.0-2.0); HEMATOCRIT 29.2 % (37.0-47.0); HEMOGLOBIN 9.5 g/dl (12.0-16.0); LYMPHOCYTES # 2.2 10^3/ul (0.8-2.9); LYMPHOCYTES % 30.7 % (15.0-51.0); MEAN CORPUSCULAR HEMOGLOBIN 27.3 pg (29.0-33.0); MEAN CORPUSCULAR HGB CONC 32.5 g/dl (32.0-37.0); MEAN CORPUSCULAR VOLUME 83.9 fl (82.0-101.0); MEAN PLATELET VOLUME 8.6 fl (7.4-10.4); MONOCYTE # 0.7 10^3/ul (0.3-0.9); NEUTROPHILS % 54.9 % (39.0-77.0); PLATELET COUNT 241 10^3/UL (140-415); RED BLOOD COUNT 3.48 10^6/ul (4.20-5.40)
[2017-12-12 05:54] LABS: WHITE BLOOD COUNT 7.2 10^3/ul (4.8-10.8)
[2017-12-12] MEDS: CLARITHROMYCIN 500 MG TAB PO ×2 (09:27→21:46)
[2017-12-12] MEDS: MEGESTROL (40 MG/ML) 10ML CUP PO ×2 (09:27→21:46)
[2017-12-12] MEDS: OCTREOTIDE 50 MCG INJ SC ×3 (09:28→21:47)
[2017-12-13] MEDS: HYDROCODONE/APAP (5/325) TAB PO ×3 (05:00→17:26)
[2017-12-13] MEDS: PANTOPRAZOLE 40 MG INJ IV ×2 (05:05→17:25)
[2017-12-13] MEDS: AMOXICILLIN 500 MG CAP PO ×3 (05:05→22:02)
[2017-12-13] MEDS: MEGESTROL (40 MG/ML) 10ML CUP PO ×2 (09:16→22:02)
[2017-12-13] MEDS: OCTREOTIDE 50 MCG INJ SC ×3 (09:16→22:03)
[2017-12-13] MEDS: CLARITHROMYCIN 500 MG TAB PO ×2 (09:17→22:03)
[2017-12-14] MEDS: PANTOPRAZOLE 40 MG INJ IV (03:58)
[2017-12-14] MEDS: AMOXICILLIN 500 MG CAP PO ×2 (03:59→14:18)
[2017-12-14] MEDS: HYDROCODONE/APAP (5/325) TAB PO ×2 (03:59→10:02)
[2017-12-14] MEDS: MEGESTROL (40 MG/ML) 10ML CUP PO (09:00)
[2017-12-14] MEDS: OCTREOTIDE 50 MCG INJ SC ×2 (09:00→14:00)
[2017-12-14] MEDS: CLARITHROMYCIN 500 MG TAB PO (09:00)
== END 2017-12-14 16:36 | disposition home or self-care (01) | DRG 809 ==
LOC: PP2 22:49 → E/R 21:07 → PP2 12-01 00:32
PROC: 30233N1 Transfusion of Nonautologous Red Blood Cells into Peripheral Vein, Percutaneous Approach (ICD-10-PCS; principal; 2017-12-08 10:15)
PROC: 0W3P8ZZ Control Bleeding in Gastrointestinal Tract, Via Natural or Artificial Opening Endoscopic (ICD-10-PCS; 2017-12-08 10:15)
PROC: 0DB68ZX Excision of Stomach, Via Natural or Artificial Opening Endoscopic, Diagnostic (ICD-10-PCS; 2017-12-08 10:15)
PROC: 0DBK8ZX Excision of Ascending Colon, Via Natural or Artificial Opening Endoscopic, Diagnostic (ICD-10-PCS; 2017-12-08 10:15)
PROC: 0DBN8ZX Excision of Sigmoid Colon, Via Natural or Artificial Opening Endoscopic, Diagnostic (ICD-10-PCS; 2017-12-08 10:15)
PROC: 0DBP8ZX Excision of Rectum, Via Natural or Artificial Opening Endoscopic, Diagnostic (ICD-10-PCS; 2017-12-08 10:15)
DX: D70.9 Neutropenia, unspecified (principal); C79.31 Secondary malignant neoplasm of brain; C50.912 Malignant neoplasm of unspecified site of left female breast; N61.0 Mastitis without abscess; R50.81 Fever presenting with conditions classified elsewhere; D64.81 Anemia due to antineoplastic chemotherapy; Z17.1 Estrogen receptor negative status [ER-]; B95.62 Methicillin resistant Staphylococcus aureus infection as the cause of diseases classified elsewhere; B95.2 Enterococcus as the cause of diseases classified elsewhere; B96.5 Pseudomonas (aeruginosa) (mallei) (pseudomallei) as the cause of diseases classified elsewhere; B96.20 Unspecified Escherichia coli [E. coli] as the cause of diseases classified elsewhere; R11.2 Nausea with vomiting, unspecified; T45.1X5A Adverse effect of antineoplastic and immunosuppressive drugs, initial encounter; Y92.239 Unspecified place in hospital as the place of occurrence of the external cause; R19.7 Diarrhea, unspecified; K26.9 Duodenal ulcer, unspecified as acute or chronic, without hemorrhage or perforation; K52.9 Noninfective gastroenteritis and colitis, unspecified; K62.89 Other specified diseases of anus and rectum; K25.9 Gastric ulcer, unspecified as acute or chronic, without hemorrhage or perforation
CPT/HCPCS: 36430; 71045; 80048; 80053; 80202; 81001; 82728; 82941; 83540; 83605; 83690; 83735; 84100; 84484; 84703; 85025; 85610; 85730; 86644; 86850; 86900; 86901; 86920; 86945; 87040; 87045; 87070; 87075; 87086; 88305; 88312; 88342; 93005; 93308; 96374; 96375; 97110; 97116; 97162; 97530; 99285-25

== ENCOUNTER 2017-12-19 14:29 | Inpatient (IN) | payer MEDICAID ==
[2017-12-19 16:14] LABS: ADD MAN DIFF? NO
[2017-12-19] MEDS: SODIUM CHLORIDE 0.9% 1L BAG IV* (16:17)
[2017-12-19] MEDS: PIPER-TAZO 3.375 GM IV (PMX) 100 ML IVPB (16:17)
[2017-12-19 16:21] LABS: BASOPHILS % 0.4 % (0.0-2.0); EOSINOPHILS # 0.1 10^3/ul (0.0-0.5); EOSINOPHILS % 0.9 % (0.0-7.0); HEMATOCRIT 26.2 % (37.0-47.0); HEMOGLOBIN 8.3 g/dl (12.0-16.0); LYMPHOCYTES # 2.4 10^3/ul (0.8-2.9); LYMPHOCYTES % 31.8 % (15.0-51.0); MEAN CORPUSCULAR HEMOGLOBIN 26.9 pg (29.0-33.0); MEAN CORPUSCULAR HGB CONC 31.7 g/dl (32.0-37.0); MEAN CORPUSCULAR VOLUME 85.1 fl (82.0-101.0); MEAN PLATELET VOLUME 7.9 fl (7.4-10.4); MONOCYTE # 0.8 10^3/ul (0.3-0.9); MONOCYTES % 10.6 % (0.0-11.0); NEUTROPHIL # 4.2 10^3/ul (1.6-7.5); PLATELET COUNT 369 10^3/UL (140-415); RED BLOOD COUNT 3.08 10^6/ul (4.20-5.40); RED CELL DISTRIBUTION WIDTH 16.4 % (11.5-14.5)
[2017-12-19 16:21] LABS: WHITE BLOOD COUNT 7.6 10^3/ul (4.8-10.8)
[2017-12-19] MEDS: HYDROCODONE/APAP (10/325) TAB PO (16:30)
[2017-12-19 16:47] LABS: LACTIC ACID 1.4 mmol/L (0.5-2.0)
[2017-12-19 16:49] LABS: ANION GAP 10 (8-16); BLOOD UREA NITROGEN 16 mg/dl (7-20); CALCIUM 7.3 mg/dl (8.4-10.2); CARBON DIOXIDE 24 mmol/L (21-31); CHLORIDE 110 mmol/L (97-110); CREATININE 0.72 mg/dl (0.44-1.00); GLUCOSE 98 mg/dl (70-220); POTASSIUM 3.4 mmol/L (3.5-5.1); SODIUM 141 mmol/L (135-144)
[2017-12-19 16:54] LABS: INR 0.93; PROTIME 12.6 Sec (11.9-14.9)
[2017-12-19 17:00] LABS: TROPONIN-I < 0.012 ng/ml (0.000-0.120)
[2017-12-19] MEDS: VANCOMYCIN 1 GM (PMX) 250 ML IVPB (17:08)
[2017-12-19] MEDS: POTASSIUM CHLORIDE (SR) 20 MEQ TAB PO (17:31)
[2017-12-19] MEDS ORDERED: ACETAMINOPHEN 325 MG TAB PO (18:00)
[2017-12-19] MEDS ORDERED: ONDANSETRON 4 MG INJ IV (18:00)
[2017-12-19] MEDS ORDERED: LOPERAMIDE 2 MG CAP PO (18:30)
[2017-12-19] MEDS ORDERED: NACL 0.9% 3 ML SYG IV (18:30)
[2017-12-19 18:33] LABS: LACTIC ACID 1.3 mmol/L (0.5-2.0)
[2017-12-19 18:37] LABS: ADD UMIC NO; UR ASCORBIC ACID NEGATIVE (NEGATIVE); UR BILIRUBIN (Dip) NEGATIVE (NEGATIVE); UR BLOOD (Dip) NEGATIVE (NEGATIVE); UR CLARITY CLEAR (CLEAR); UR COLOR STRAW (YELLOW); UR GLUCOSE (Dip) NEGATIVE (NEGATIVE); UR KETONES (Dip) NEGATIVE (NEGATIVE); UR LEUKOCYTE ESTERASE (Dip) NEGATIVE Leu/ul (NEGATIVE); UR NITRITE (Dip) NEGATIVE (NEGATIVE); UR SPECIFIC GRAVITY (Dip) 1.005 (1.003-1.030); UR TOTAL PROTEIN (Dip) NEGATIVE (NEGATIVE); UR UROBILINOGEN (Dip) NEGATIVE (NEGATIVE)
[2017-12-19] MEDS: HYDROmorphONE 0.5 MG/0.5 ML SYG IV (18:55)
[2017-12-19] MEDS ORDERED: LORAZEPAM 1 MG TAB PO (19:00)
[2017-12-19] MEDS ORDERED: CLARITHROMYCIN 250 MG TAB PO (22:00)
[2017-12-19] MEDS: SENNA TAB PO (22:00)
[2017-12-19] MEDS: PANTOPRAZOLE (EC) 40 MG TAB PO (22:14)
[2017-12-19] MEDS: morphine (ER) 15 MG TAB PO (22:15)
[2017-12-19 23:23] LABS: LACTIC ACID 1.2 mmol/L (0.5-2.0)
[2017-12-19] MEDS: AMOXICILLIN 500 MG CAP PO (23:41)
[2017-12-19] MEDS: HYDROCODONE/APAP (5/325) TAB PO (23:41)
[2017-12-19] MEDS: MEGESTROL (40 MG/ML) 10ML CUP PO (23:41)
[2017-12-19] MEDS: CLARITHROMYCIN 500 MG TAB PO (23:42)
[2017-12-20] MEDS: AMOXICILLIN 500 MG CAP PO ×3 (05:43→22:17)
[2017-12-20] MEDS: PANTOPRAZOLE (EC) 40 MG TAB PO ×2 (05:43→17:44)
[2017-12-20] MEDS: HYDROCODONE/APAP (5/325) TAB PO (05:44)
[2017-12-20 06:28] LABS: ALANINE AMINOTRANSFERASE 30 IU/L (13-69); ALBUMIN 2.1 g/dl (3.3-4.9); ALBUMIN/GLOBULIN RATIO 0.67; ALKALINE PHOSPHATASE 70 IU/L (42-121); ANION GAP 7 (8-16); ASPARTATE AMINO TRANSFERASE 28 IU/L (15-46); BILIRUBIN,INDIRECT 0.1 mg/dl (0-1.1); BILIRUBIN,TOTAL 0.1 mg/dl (0.2-1.3); BLOOD UREA NITROGEN 10 mg/dl (7-20); CALCIUM 6.8 mg/dl (8.4-10.2); CARBON DIOXIDE 21 mmol/L (21-31); CHLORIDE 118 mmol/L (97-110); GLUCOSE 88 mg/dl (70-220); MAGNESIUM 1.2 mg/dl (1.7-2.5); POTASSIUM 3.2 mmol/L (3.5-5.1); SODIUM 143 mmol/L (135-144); TOTAL PROTEIN 5.2 g/dl (6.1-8.1)
[2017-12-20 06:30] LABS: FREE THYROXINE INDEX (Calc) 2.85 ug/ml (0.65-3.89); T3 UPTAKE 43.9 % (23.5-40.5); T4 (THYROXINE) 6.5 ug/dl (5.5-11.0)
[2017-12-20] MEDS: CLARITHROMYCIN 500 MG TAB PO ×2 (08:31→20:30)
[2017-12-20] MEDS: morphine (ER) 15 MG TAB PO ×2 (08:31→20:30)
[2017-12-20] MEDS: MEGESTROL (40 MG/ML) 10ML CUP PO ×2 (08:32→20:30)
[2017-12-20] MEDS: SENNA TAB PO ×2 (08:32→20:30)
[2017-12-20] MEDS: ENOXAPARIN 40 MG/0.4 ML SYG SC (08:40)
[2017-12-20] MEDS ORDERED: CLARITHROMYCIN 500 MG TAB PO (09:00)
[2017-12-20] MEDS ORDERED: traZODone 50 MG TAB PO (09:30)
[2017-12-20] MEDS: POTASSIUM CHLORIDE (SR) 20 MEQ TAB PO (10:29)
[2017-12-20] MEDS: POTASSIUM PHOSPHATE 40 MEQ in SOD CHLORIDE 0.9% 250 ML IVPB (11:15)
[2017-12-20] MEDS: HYDROmorphONE 0.5 MG/0.5 ML SYG IV (11:24)
[2017-12-20] MEDS ORDERED: LORAZEPAM 1 MG TAB PO (13:00)
[2017-12-20] MEDS: SODIUM HYPOCHLORITE (1/40) 1 APPLIC BTL IRR ×2 (14:21→23:14)
[2017-12-20] MEDS: HYDROCODONE/APAP (10/325) TAB PO ×2 (16:50→22:17)
[2017-12-21] MEDS: AMOXICILLIN 500 MG CAP PO ×3 (06:19→23:16)
[2017-12-21] MEDS: PANTOPRAZOLE (EC) 40 MG TAB PO ×2 (06:19→17:56)
[2017-12-21] MEDS: HYDROCODONE/APAP (10/325) TAB PO ×2 (06:19→22:35)
[2017-12-21] MEDS: CLARITHROMYCIN 500 MG TAB PO ×2 (09:15→20:07)
[2017-12-21] MEDS: morphine (ER) 15 MG TAB PO (09:15)
[2017-12-21] MEDS: SENNA TAB PO ×2 (09:15→20:07)
[2017-12-21] MEDS: MEGESTROL (40 MG/ML) 10ML CUP PO ×2 (09:16→20:07)
[2017-12-21] MEDS: ENOXAPARIN 40 MG/0.4 ML SYG SC (09:20)
[2017-12-21] MEDS: SODIUM HYPOCHLORITE (1/40) 1 APPLIC BTL IRR ×2 (09:21→23:17)
[2017-12-21 09:42] LABS: ADD MAN DIFF? NO
[2017-12-21 09:51] LABS: WHITE BLOOD COUNT 6.9 10^3/ul (4.8-10.8)
[2017-12-21 09:51] LABS: BASOPHILS % 0.6 % (0.0-2.0); EOSINOPHILS # 0.1 10^3/ul (0.0-0.5); HEMATOCRIT 28.1 % (37.0-47.0); HEMOGLOBIN 8.9 g/dl (12.0-16.0); LYMPHOCYTES # 2.3 10^3/ul (0.8-2.9); LYMPHOCYTES % 33.2 % (15.0-51.0); MEAN CORPUSCULAR HEMOGLOBIN 27.4 pg (29.0-33.0); MEAN CORPUSCULAR HGB CONC 31.7 g/dl (32.0-37.0); MEAN CORPUSCULAR VOLUME 86.5 fl (82.0-101.0); MEAN PLATELET VOLUME 7.9 fl (7.4-10.4); MONOCYTE # 0.6 10^3/ul (0.3-0.9); MONOCYTES % 8.1 % (0.0-11.0); NEUTROPHIL # 3.8 10^3/ul (1.6-7.5); NEUTROPHILS % 55.2 % (39.0-77.0); PLATELET COUNT 438 10^3/UL (140-415); RED BLOOD COUNT 3.25 10^6/ul (4.20-5.40); RED CELL DISTRIBUTION WIDTH 17.2 % (11.5-14.5)
[2017-12-21 10:16] LABS: ALANINE AMINOTRANSFERASE 30 IU/L (13-69); ALBUMIN/GLOBULIN RATIO 0.81; ALKALINE PHOSPHATASE 98 IU/L (42-121); ANION GAP 11 (8-16); ASPARTATE AMINO TRANSFERASE 32 IU/L (15-46); BILIRUBIN,INDIRECT 0.3 mg/dl (0-1.1); BILIRUBIN,TOTAL 0.3 mg/dl (0.2-1.3); BLOOD UREA NITROGEN 10 mg/dl (7-20); CALCIUM 7.6 mg/dl (8.4-10.2); CARBON DIOXIDE 22 mmol/L (21-31); CHLORIDE 115 mmol/L (97-110); CREATININE 0.56 mg/dl (0.44-1.00); GLUCOSE 96 mg/dl (70-220); MAGNESIUM 1.1 mg/dl (1.7-2.5); PHOSPHORUS 3.2 mg/dl (2.5-4.9); POTASSIUM 3.6 mmol/L (3.5-5.1); SODIUM 144 mmol/L (135-144); TOTAL PROTEIN 6.7 g/dl (6.1-8.1)
[2017-12-21] MEDS: morphine (ER) 30 MG TAB PO (20:06)
[2017-12-21] MEDS: ONDANSETRON 4 MG INJ IV (20:15)
[2017-12-21] MEDS: FUROSEMIDE 40 MG INJ IV (22:37)
[2017-12-22] MEDS: AMOXICILLIN 500 MG CAP PO ×2 (06:37→13:34)
[2017-12-22] MEDS: HYDROCODONE/APAP (10/325) TAB PO ×3 (06:37→17:19)
[2017-12-22] MEDS: PANTOPRAZOLE (EC) 40 MG TAB PO ×2 (06:37→17:19)
[2017-12-22] MEDS: morphine (ER) 30 MG TAB PO (09:04)
[2017-12-22] MEDS: SODIUM HYPOCHLORITE (1/40) 1 APPLIC BTL IRR (09:04)
[2017-12-22] MEDS: SENNA TAB PO (09:05)
[2017-12-22] MEDS: CLARITHROMYCIN 500 MG TAB PO (09:05)
[2017-12-22] MEDS: MEGESTROL (40 MG/ML) 10ML CUP PO (09:05)
[2017-12-22] MEDS: ENOXAPARIN 40 MG/0.4 ML SYG SC (09:13)
== END 2017-12-22 17:50 | disposition home or self-care (01) | DRG 598 ==
LOC: E/R 14:29 → MS1 17:54
DX: C50.912 Malignant neoplasm of unspecified site of left female breast (principal); C79.31 Secondary malignant neoplasm of brain; E87.6 Hypokalemia; B96.81 Helicobacter pylori [H. pylori] as the cause of diseases classified elsewhere; F41.9 Anxiety disorder, unspecified; R63.0 Anorexia; Z68.26 Body mass index [BMI] 26.0-26.9, adult; Z17.1 Estrogen receptor negative status [ER-]
CPT/HCPCS: 36415; 71045; 80048; 80053; 81003; 83605; 83735; 84100; 84436; 84479; 84484; 85025; 85610; 85730; 87040; 87045; 87081; 87086; 93005; 93970; 96374; 96375; 99285-25

== ENCOUNTER 2018-01-11 08:50 | Inpatient (IN) | payer MEDICAID ==
[2018-01-11] MEDS ORDERED: KETOROLAC 30 MG INJ IV (09:18)
[2018-01-11] MEDS: SODIUM CHLORIDE 0.9% 1L BAG IV* (09:51)
[2018-01-11] MEDS: CEFEPIME 2GM/50 ML (PMX) 50 ML IVPB (10:28)
[2018-01-11] MEDS: HYDROmorphONE 1 MG/ML SYG IV ×2 (10:28→13:56)
[2018-01-11] MEDS: ONDANSETRON 4 MG INJ IV ×3 (10:28→20:38)
[2018-01-11] MEDS: SOD CHLORIDE 0.9% 1,000 ML IV ×4 (10:29→23:48)
[2018-01-11 10:45] LABS: ABNORMAL IP MESSAGE 1; HEMATOCRIT 29.7 % (37.0-47.0); HEMOGLOBIN 9.2 g/dl (12.0-16.0); MEAN CORPUSCULAR HEMOGLOBIN 26.7 pg (29.0-33.0); MEAN CORPUSCULAR VOLUME 86.1 fl (82.0-101.0); MEAN PLATELET VOLUME 8.5 fl (7.4-10.4); NUCLEATED RED BLOOD CELLS% 0.2 /100WBC (0.0-0.0); PLATELET COUNT 377 10^3/UL (140-415); RED BLOOD COUNT 3.45 10^6/ul (4.20-5.40); RED CELL DISTRIBUTION WIDTH 17.7 % (11.5-14.5)
[2018-01-11 10:45] LABS: WHITE BLOOD COUNT 19.3 10^3/ul (4.8-10.8)
[2018-01-11 10:46] LABS: ADD MAN DIFF? YES; POSITIVE DIFF @See below
[2018-01-11 10:57] LABS: ALANINE AMINOTRANSFERASE 110 IU/L (13-69); ALBUMIN 3.5 g/dl (3.3-4.9); ALBUMIN/GLOBULIN RATIO 0.87; ALKALINE PHOSPHATASE 133 IU/L (42-121); ANION GAP 16 (8-16); ASPARTATE AMINO TRANSFERASE 42 IU/L (15-46); BILIRUBIN,INDIRECT 0.1 mg/dl (0-1.1); BILIRUBIN,TOTAL 0.1 mg/dl (0.2-1.3); BLOOD UREA NITROGEN 14 mg/dl (7-20); CALCIUM 9.9 mg/dl (8.4-10.2); CARBON DIOXIDE 24 mmol/L (21-31); CHLORIDE 106 mmol/L (97-110); CREATININE 0.86 mg/dl (0.44-1.00); GLUCOSE 97 mg/dl (70-220); POTASSIUM 3.2 mmol/L (3.5-5.1); SODIUM 143 mmol/L (135-144); TOTAL PROTEIN 7.5 g/dl (6.1-8.1)
[2018-01-11 11:08] LABS: ANISOCYTOSIS 1+ (0-0); BASOPHIL #M 0.1 10^3/ul (0.0-0.0); BASOPHILS % (M) 1 % (0-2); LYMPHOCYTES #M 2.8 10^3/ul (0.8-2.9); LYMPHOCYTES % (M) 15 % (15-51); METAMYELOCYTES #M 0.3 10^3/ul (0.0-0.0); METAMYELOCYTES %M 2 % (0-0); MONOCYTE #M 2.3 10^3/ul (0.3-0.9); MONOCYTES % (M) 12 % (0-11); MYELOCYTES #M 0.1 10^3/ul (0.0-0.0); MYELOCYTES % (M) 1 % (0-0); PLATELET ESTIMATE NORMAL; POLYCHROMASIA 1+ (0-0); REACTIVE LYMPHOCYTES #M 0.3 10^3/ul (0.0-0.0); REACTIVE LYMPHOCYTES% (M) 2 % (0-0); SEGMENTED NEUTROPHILS (M) % 67 % (39-77); SMUDGE%M 8 % (0-0); TOXIC GRANULATION 1+ (0-0)
[2018-01-11 11:10] LABS: LACTIC ACID 2.3 mmol/L (0.5-2.0)
[2018-01-11] MEDS: VANCOMYCIN 1 GM (PMX) 250 ML IVPB (11:38)
[2018-01-11] MEDS: IODIXANOL LOCM 100 ML BTL (11:46)
[2018-01-11] MEDS: SOD CHLORIDE 0.9% 100 ML (11:46)
[2018-01-11] MEDS ORDERED: ACETAMINOPHEN 325 MG TAB PO ×2 (13:00→13:30)
[2018-01-11] MEDS ORDERED: ONDANSETRON 4 MG INJ IV (13:00)
[2018-01-11] MEDS ORDERED: HYDROCODONE/APAP (5/325) TAB PO (13:30)
[2018-01-11] MEDS ORDERED: VANCOMYCIN IV PER PHARMACY XX (13:30)
[2018-01-11] MEDS ORDERED: NACL 0.9% 3 ML SYG IV (13:30)
[2018-01-11 14:00] LABS: PROTIME 13.3 Sec (11.9-14.9)
[2018-01-11] MEDS: POTASSIUM CHLORIDE 20 MEQ POWDER FOR ORAL SOLN PO (14:00)
[2018-01-11 14:01] LABS: PARTIAL THROMBOPLASTIN TIME 32.2 Sec (23.0-35.0); THROMBIN TIME 15.4 SEC (13.8-19.1)
[2018-01-11 14:06] LABS: PLATELET COUNT 377 10^3/UL (140-415)
[2018-01-11 14:21] LABS: LACTIC ACID 3.5 mmol/L (0.5-2.0)
[2018-01-11] MEDS: PIPER-TAZO 3.375 GM IV (PMX) 100 ML IVPB ×2 (15:38→17:23)
[2018-01-11] MEDS: morphine (ER) 30 MG TAB PO ×2 (15:39→23:30)
[2018-01-11] MEDS: HEPARIN 5,000 UNIT/0.5 ML VIAL SC ×2 (15:50→20:32)
[2018-01-11 15:57] LABS: LACTIC ACID 3.9 mmol/L (0.5-2.0)
[2018-01-11] MEDS: NICARDipine HCL 30 MG CAPSULE PO (16:27)
[2018-01-11] MEDS ORDERED: PENDING SANTYL ORDER FOR WOUND CARE XX (17:30)
[2018-01-11] MEDS: morphine 2 MG INJ IV (18:36)
[2018-01-11] MEDS: MEGESTROL (40 MG/ML) 10ML CUP PO (20:30)
[2018-01-11] MEDS: VANCOMYCIN 750 MG in SOD CHLORIDE 0.9% 150 ML IVPB (22:27)
[2018-01-12] MEDS: PIPER-TAZO 3.375 GM IV (PMX) 100 ML IVPB ×5 (00:13→23:18)
[2018-01-12] MEDS: morphine (ER) 30 MG TAB PO ×3 (00:14→20:54)
[2018-01-12 00:24] LABS: ADD UMIC NO; UR ASCORBIC ACID NEGATIVE (NEGATIVE); UR BILIRUBIN (Dip) NEGATIVE (NEGATIVE); UR BLOOD (Dip) NEGATIVE (NEGATIVE); UR CLARITY CLEAR (CLEAR); UR COLOR COLORLESS (YELLOW); UR GLUCOSE (Dip) NEGATIVE (NEGATIVE); UR KETONES (Dip) NEGATIVE (NEGATIVE); UR LEUKOCYTE ESTERASE (Dip) NEGATIVE Leu/ul (NEGATIVE); UR NITRITE (Dip) NEGATIVE (NEGATIVE); UR RBC 1 /HPF (0-5); UR TOTAL PROTEIN (Dip) NEGATIVE (NEGATIVE); UR UROBILINOGEN (Dip) NEGATIVE (NEGATIVE); UR WBC 3 /HPF (0-5)
[2018-01-12] MEDS: PANTOPRAZOLE (EC) 40 MG TAB PO (05:25)
[2018-01-12] MEDS: HEPARIN 5,000 UNIT/0.5 ML VIAL SC ×3 (05:26→20:56)
[2018-01-12] MEDS: ONDANSETRON 4 MG INJ IV ×3 (05:28→20:54)
[2018-01-12 06:19] LABS: WHITE BLOOD COUNT 19.3 10^3/ul (4.8-10.8)
[2018-01-12 06:19] LABS: ABNORMAL IP MESSAGE 1; HEMATOCRIT 26.7 % (37.0-47.0); HEMOGLOBIN 8.4 g/dl (12.0-16.0); MEAN CORPUSCULAR HEMOGLOBIN 26.8 pg (29.0-33.0); MEAN CORPUSCULAR HGB CONC 31.5 g/dl (32.0-37.0); MEAN PLATELET VOLUME 8.5 fl (7.4-10.4); NUCLEATED RED BLOOD CELLS% 0.4 /100WBC (0.0-0.0); PLATELET COUNT 299 10^3/UL (140-415); RED BLOOD COUNT 3.14 10^6/ul (4.20-5.40)
[2018-01-12 06:36] LABS: ADD MAN DIFF? YES; POSITIVE DIFF @See below
[2018-01-12 06:50] LABS: ALANINE AMINOTRANSFERASE 79 IU/L (13-69); ALBUMIN 3.1 g/dl (3.3-4.9); ALBUMIN/GLOBULIN RATIO 0.96; ALKALINE PHOSPHATASE 112 IU/L (42-121); ANION GAP 15 (8-16); ASPARTATE AMINO TRANSFERASE 42 IU/L (15-46); BILIRUBIN,INDIRECT 0.3 mg/dl (0-1.1); BILIRUBIN,TOTAL 0.3 mg/dl (0.2-1.3); BLOOD UREA NITROGEN 9 mg/dl (7-20); CALCIUM 8.2 mg/dl (8.4-10.2); CARBON DIOXIDE 22 mmol/L (21-31); CHLORIDE 108 mmol/L (97-110); CREATININE 0.75 mg/dl (0.44-1.00); GLUCOSE 79 mg/dl (70-220); MAGNESIUM 1.2 mg/dl (1.7-2.5); POTASSIUM 3.5 mmol/L (3.5-5.1); SODIUM 141 mmol/L (135-144); TOTAL PROTEIN 6.3 g/dl (6.1-8.1)
[2018-01-12] MEDS: MEGESTROL (40 MG/ML) 10ML CUP PO ×2 (08:28→20:54)
[2018-01-12] MEDS: SOD CHLORIDE 0.9% 1,000 ML IV (08:28)
[2018-01-12 10:04] LABS: ANISOCYTOSIS 1+ (0-0); BAND NEUTROPHILS #M 0.5 10^3/ul (0.0-0.6); BAND NEUTROPHILS % (M) 3 % (0-4); BASOPHIL #M 0.5 10^3/ul (0.0-0.0); BASOPHILS % (M) 3 % (0-2); BURR CELLS 1+ (0-0); ERYTHROBLAST% (NRBC) (M) 1 % (0-0); LYMPHOCYTES #M 2.8 10^3/ul (0.8-2.9); LYMPHOCYTES % (M) 15 % (15-51); MONOCYTE #M 0.9 10^3/ul (0.3-0.9); MONOCYTES % (M) 5 % (0-11); OVALOCYTES 1+ (0-0); PLATELET ESTIMATE NORMAL; POLYCHROMASIA 2+ (0-0); REACTIVE LYMPHOCYTES #M 0.7 10^3/ul (0.0-0.0); REACTIVE LYMPHOCYTES% (M) 4 % (0-0); SEG NEUT #M 13.6 10^3/ul (1.6-7.5); SEGMENTED NEUTROPHILS (M) % 70 % (39-77); SMUDGE%M 4 % (0-0)
[2018-01-12] MEDS: MAGNESIUM SULFATE 2 GM/50 ML 50 ML IVPB (10:43)
[2018-01-12 10:59] LABS: LACTIC ACID 1.7 mmol/L (0.5-2.0)
[2018-01-12] MEDS: VANCOMYCIN 750 MG in SOD CHLORIDE 0.9% 150 ML IVPB ×2 (12:36→23:16)
[2018-01-12 23:04] LABS: VANCOMYCIN,TROUGH 10.4 ug/ml (10.0-20.0)
[2018-01-13] MEDS: SOD CHLORIDE 0.9% 1,000 ML IV (05:35)
[2018-01-13] MEDS: PIPER-TAZO 3.375 GM IV (PMX) 100 ML IVPB ×3 (05:36→17:11)
[2018-01-13] MEDS: PANTOPRAZOLE (EC) 40 MG TAB PO (05:36)
[2018-01-13] MEDS: ONDANSETRON 4 MG INJ IV (05:36)
[2018-01-13] MEDS: HEPARIN 5,000 UNIT/0.5 ML VIAL SC (05:48)
[2018-01-13 06:23] LABS: WHITE BLOOD COUNT 11.1 10^3/ul (4.8-10.8)
[2018-01-13 06:23] LABS: ABNORMAL IP MESSAGE 1; HEMATOCRIT 22.8 % (37.0-47.0); HEMOGLOBIN 7.2 g/dl (12.0-16.0); MEAN CORPUSCULAR HEMOGLOBIN 26.7 pg (29.0-33.0); MEAN CORPUSCULAR HGB CONC 31.6 g/dl (32.0-37.0); MEAN CORPUSCULAR VOLUME 84.4 fl (82.0-101.0); MEAN PLATELET VOLUME 8.3 fl (7.4-10.4); PLATELET COUNT 215 10^3/UL (140-415); RED CELL DISTRIBUTION WIDTH 18.1 % (11.5-14.5)
[2018-01-13 06:29] LABS: ADD MAN DIFF? YES; POSITIVE DIFF @See below
[2018-01-13 06:50] LABS: ANION GAP 8 (8-16); BLOOD UREA NITROGEN 7 mg/dl (7-20); CALCIUM 8.1 mg/dl (8.4-10.2); CARBON DIOXIDE 24 mmol/L (21-31); CHLORIDE 108 mmol/L (97-110); CREATININE 0.79 mg/dl (0.44-1.00); GLUCOSE 90 mg/dl (70-220); PHOSPHORUS 3.7 mg/dl (2.5-4.9); POTASSIUM 3.1 mmol/L (3.5-5.1); SODIUM 137 mmol/L (135-144)
[2018-01-13 08:32] LABS: ANISOCYTOSIS 1+ (0-0); BASOPHIL #M 0.1 10^3/ul (0.0-0.0); BASOPHILS % (M) 1 % (0-2); BURR CELLS 1+ (0-0); LYMPHOCYTES #M 1.4 10^3/ul (0.8-2.9); LYMPHOCYTES % (M) 13 % (15-51); METAMYELOCYTES #M 0.1 10^3/ul (0.0-0.0); METAMYELOCYTES %M 1 % (0-0); MONOCYTE #M 0.3 10^3/ul (0.3-0.9); MONOCYTES % (M) 3 % (0-11); MYELOCYTES #M 0.1 10^3/ul (0.0-0.0); MYELOCYTES % (M) 1 % (0-0); PLATELET ESTIMATE NORMAL; SEGMENTED NEUTROPHILS (M) % 81 % (39-77); SMUDGE%M 6 % (0-0); SPHEROCYTES 1+ (0-0); TOXIC GRANULATION 1+ (0-0)
[2018-01-13] MEDS: MEGESTROL (40 MG/ML) 10ML CUP PO ×2 (08:42→23:21)
[2018-01-13] MEDS: morphine (ER) 30 MG TAB PO ×2 (08:43→23:22)
[2018-01-13] MEDS: VANCOMYCIN 750 MG in SOD CHLORIDE 0.9% 150 ML IVPB (10:00)
[2018-01-13] MEDS: POTASSIUM CHLORIDE 20 MEQ POWDER FOR ORAL SOLN PO (14:39)
[2018-01-13] MEDS ORDERED: morphine LIQ (10 MG/5 ML) CUP PO (21:30)
[2018-01-13] MEDS: MUPIROCIN 2% 22 GM OINT TOP (23:20)
[2018-01-13] MEDS: LACTOBACILLUS RHAMNOSUS CAP PO (23:21)
[2018-01-13] MEDS: VANCOMYCIN 1 GM 250 ML IVPB (23:28)
[2018-01-14] MEDS: SOD CHLORIDE 0.9% 1,000 ML IV ×2 (01:15→21:15)
[2018-01-14] MEDS: PIPER-TAZO 3.375 GM IV (PMX) 100 ML IVPB ×2 (05:46)
[2018-01-14 06:11] LABS: WHITE BLOOD COUNT 8.6 10^3/ul (4.8-10.8)
[2018-01-14 06:11] LABS: ABNORMAL IP MESSAGE 1; HEMATOCRIT 22.2 % (37.0-47.0); MEAN CORPUSCULAR HEMOGLOBIN 26.7 pg (29.0-33.0); MEAN CORPUSCULAR HGB CONC 31.5 g/dl (32.0-37.0); MEAN CORPUSCULAR VOLUME 84.7 fl (82.0-101.0); MEAN PLATELET VOLUME 8.2 fl (7.4-10.4); PLATELET COUNT 184 10^3/UL (140-415); RED BLOOD COUNT 2.62 10^6/ul (4.20-5.40); RED CELL DISTRIBUTION WIDTH 17.7 % (11.5-14.5)
[2018-01-14 06:20] LABS: POSITIVE DIFF @See below
[2018-01-14 06:21] LABS: ADD MAN DIFF? YES
[2018-01-14 06:39] LABS: ALANINE AMINOTRANSFERASE 53 IU/L (13-69); ALBUMIN 2.4 g/dl (3.3-4.9); ALBUMIN/GLOBULIN RATIO 0.72; ALKALINE PHOSPHATASE 119 IU/L (42-121); ANION GAP 11 (8-16); ASPARTATE AMINO TRANSFERASE 26 IU/L (15-46); BILIRUBIN,INDIRECT 0.2 mg/dl (0-1.1); BILIRUBIN,TOTAL 0.2 mg/dl (0.2-1.3); BLOOD UREA NITROGEN 10 mg/dl (7-20); CALCIUM 8.6 mg/dl (8.4-10.2); CARBON DIOXIDE 22 mmol/L (21-31); CHLORIDE 113 mmol/L (97-110); CREATININE 1.39 mg/dl (0.44-1.00); GLUCOSE 89 mg/dl (70-220); MAGNESIUM 1.9 mg/dl (1.7-2.5); PHOSPHORUS 3.2 mg/dl (2.5-4.9); POTASSIUM 3.6 mmol/L (3.5-5.1); SODIUM 142 mmol/L (135-144); TOTAL PROTEIN 5.7 g/dl (6.1-8.1)
[2018-01-14 07:39] LABS: ANISOCYTOSIS 1+ (0-0); BAND NEUTROPHILS % (M) 1 % (0-4); BURR CELLS 1+ (0-0); ELLIPTO 1+ (0-0); ERYTHROBLAST% (NRBC) (M) 1 % (0-0); GIANT THROMBO% (M) 1 % (0-0); LYMPHOCYTES #M 1.3 10^3/ul (0.8-2.9); LYMPHOCYTES % (M) 16 % (15-51); MICROCYTOSIS 1+ (0-0); MONOCYTE #M 0.5 10^3/ul (0.3-0.9); MONOCYTES % (M) 6 % (0-11); MYELOCYTES % (M) 1 % (0-0); PLATELET ESTIMATE NORMAL; POIKILOCYTOSIS 1+ (0-0); POLYCHROMASIA 1+ (0-0); SEG NEUT #M 6.5 10^3/ul (1.6-7.5); SEGMENTED NEUTROPHILS (M) % 76 % (39-77); SMUDGE%M 26 % (0-0)
[2018-01-14] MEDS: POTASSIUM CHLORIDE 20 MEQ POWDER FOR ORAL SOLN PO (08:29)
[2018-01-14] MEDS: MEGESTROL (40 MG/ML) 10ML CUP PO ×2 (08:30→20:22)
[2018-01-14] MEDS: SENNA/DOCUSATE NA (8.6MG/50MG) TAB PO (08:30)
[2018-01-14] MEDS: FAMOTIDINE 20 MG TAB PO (08:30)
[2018-01-14] MEDS: LACTOBACILLUS RHAMNOSUS CAP PO ×2 (08:30→20:22)
[2018-01-14] MEDS: MUPIROCIN 2% 22 GM OINT TOP ×2 (08:31→20:22)
[2018-01-14] MEDS: ENOXAPARIN 40 MG/0.4 ML SYG SC ×2 (09:00)
[2018-01-14] MEDS ORDERED: ENOXAPARIN 30 MG/0.3 ML SYG SC (09:00)
[2018-01-14] MEDS: morphine (ER) 30 MG TAB PO ×2 (09:07→20:22)
[2018-01-14] MEDS: VANCOMYCIN 1 GM 250 ML IVPB (11:54)
[2018-01-14 11:59] LABS: HEMOGLOBIN A1C 5.6 % (0-5.9)
[2018-01-14] MEDS: ONDANSETRON 4 MG INJ IV (18:49)
[2018-01-15 00:08] LABS: VANCOMYCIN,TROUGH 24.4 ug/ml (10.0-20.0)
[2018-01-15] MEDS: VANCOMYCIN 1 GM 250 ML IVPB (00:28)
[2018-01-15] MEDS: SOD CHLORIDE 0.9% 1,000 ML IV (03:50)
[2018-01-15] MEDS: VANCOMYCIN 750 MG in SOD CHLORIDE 0.9% 150 ML IVPB (05:47)
[2018-01-15 06:16] LABS: ADD MAN DIFF? NO
[2018-01-15 06:32] LABS: BASOPHILS % 0.5 % (0.0-2.0); HEMATOCRIT 24.9 % (37.0-47.0); HEMOGLOBIN 7.6 g/dl (12.0-16.0); LYMPHOCYTES # 1.8 10^3/ul (0.8-2.9); MEAN CORPUSCULAR HEMOGLOBIN 26.8 pg (29.0-33.0); MEAN CORPUSCULAR HGB CONC 30.5 g/dl (32.0-37.0); MEAN CORPUSCULAR VOLUME 87.7 fl (82.0-101.0); MEAN PLATELET VOLUME 8.5 fl (7.4-10.4); MONOCYTE # 0.8 10^3/ul (0.3-0.9); MONOCYTES % 9.4 % (0.0-11.0); NEUTROPHILS % 63.2 % (39.0-77.0); PLATELET COUNT 181 10^3/UL (140-415); RED BLOOD COUNT 2.84 10^6/ul (4.20-5.40); RED CELL DISTRIBUTION WIDTH 17.7 % (11.5-14.5)
[2018-01-15 07:01] LABS: ALANINE AMINOTRANSFERASE 39 IU/L (13-69); ALBUMIN 3.1 g/dl (3.3-4.9); ALBUMIN/GLOBULIN RATIO 0.96; ALKALINE PHOSPHATASE 163 IU/L (42-121); ANION GAP 11 (8-16); ASPARTATE AMINO TRANSFERASE 25 IU/L (15-46); BILIRUBIN,INDIRECT 0.1 mg/dl (0-1.1); BILIRUBIN,TOTAL 0.1 mg/dl (0.2-1.3); BLOOD UREA NITROGEN 8 mg/dl (7-20); CALCIUM 8.8 mg/dl (8.4-10.2); CARBON DIOXIDE 22 mmol/L (21-31); CHLORIDE 114 mmol/L (97-110); CREATININE 1.31 mg/dl (0.44-1.00); GLUCOSE 103 mg/dl (70-220); POTASSIUM 3.8 mmol/L (3.5-5.1); SODIUM 143 mmol/L (135-144); TOTAL PROTEIN 6.3 g/dl (6.1-8.1)
[2018-01-15 08:16] LABS: CREATININE,URINE RANDOM 30.63 mg/dl (20-320)
[2018-01-15 08:41] LABS: SODIUM,URINE RANDOM 101 mmol/L (30-90)
[2018-01-15] MEDS: SENNA/DOCUSATE NA (8.6MG/50MG) TAB PO (09:00)
[2018-01-15] MEDS: MEGESTROL (40 MG/ML) 10ML CUP PO ×2 (09:24→20:42)
[2018-01-15] MEDS: POTASSIUM CHLORIDE 20 MEQ POWDER FOR ORAL SOLN PO (09:24)
[2018-01-15] MEDS: FAMOTIDINE 20 MG TAB PO (09:24)
[2018-01-15] MEDS: LACTOBACILLUS RHAMNOSUS CAP PO ×2 (09:24→20:42)
[2018-01-15] MEDS: morphine (ER) 30 MG TAB PO ×2 (09:25→20:43)
[2018-01-15] MEDS: MUPIROCIN 2% 22 GM OINT TOP ×2 (09:25→20:43)
[2018-01-15] MEDS: ENOXAPARIN 40 MG/0.4 ML SYG SC (09:32)
[2018-01-15] MEDS: LIDOCAINE 1% (MPF) 5 ML VIAL SC (14:30)
[2018-01-15] MEDS ORDERED: LIDOCAINE 1% (MPF) 5 ML VIAL SC (15:00)
[2018-01-16] MEDS: VANCOMYCIN 1 GM 250 ML IVPB (05:28)
[2018-01-16 05:39] LABS: ADD MAN DIFF? NO
[2018-01-16 05:49] LABS: BASOPHILS % 0.2 % (0.0-2.0); HEMATOCRIT 25.4 % (37.0-47.0); HEMOGLOBIN 7.8 g/dl (12.0-16.0); LYMPHOCYTES # 1.9 10^3/ul (0.8-2.9); LYMPHOCYTES % 21.5 % (15.0-51.0); MEAN CORPUSCULAR HEMOGLOBIN 26.3 pg (29.0-33.0); MEAN CORPUSCULAR HGB CONC 30.7 g/dl (32.0-37.0); MEAN CORPUSCULAR VOLUME 85.5 fl (82.0-101.0); MEAN PLATELET VOLUME 8.3 fl (7.4-10.4); MONOCYTE # 0.6 10^3/ul (0.3-0.9); NEUTROPHIL # 6.1 10^3/ul (1.6-7.5); NEUTROPHILS % 68.7 % (39.0-77.0); PLATELET COUNT 206 10^3/UL (140-415); RED BLOOD COUNT 2.97 10^6/ul (4.20-5.40); RED CELL DISTRIBUTION WIDTH 17.6 % (11.5-14.5)
[2018-01-16 05:49] LABS: WHITE BLOOD COUNT 8.8 10^3/ul (4.8-10.8)
[2018-01-16 06:06] LABS: ANION GAP 13 (8-16); BLOOD UREA NITROGEN 9 mg/dl (7-20); CALCIUM 8.9 mg/dl (8.4-10.2); CARBON DIOXIDE 23 mmol/L (21-31); CHLORIDE 110 mmol/L (97-110); CREATININE 1.25 mg/dl (0.44-1.00); GLUCOSE 98 mg/dl (70-220); POTASSIUM 4.1 mmol/L (3.5-5.1); SODIUM 142 mmol/L (135-144)
[2018-01-16] MEDS: POTASSIUM CHLORIDE 20 MEQ POWDER FOR ORAL SOLN PO (08:20)
[2018-01-16] MEDS: FAMOTIDINE 20 MG TAB PO (08:20)
[2018-01-16] MEDS: MEGESTROL (40 MG/ML) 10ML CUP PO ×2 (08:20→21:52)
[2018-01-16] MEDS: morphine (ER) 30 MG TAB PO ×2 (08:20→20:59)
[2018-01-16] MEDS: MUPIROCIN 2% 22 GM OINT TOP ×2 (08:21→21:53)
[2018-01-16] MEDS: LACTOBACILLUS RHAMNOSUS CAP PO ×2 (08:21→20:59)
[2018-01-16] MEDS: SENNA/DOCUSATE NA (8.6MG/50MG) TAB PO (08:21)
[2018-01-16] MEDS: ENOXAPARIN 40 MG/0.4 ML SYG SC (08:27)
[2018-01-16] MEDS: DAPTOMYCIN 375 MG in SOD CHLORIDE 0.9% 100 ML IVPB (11:27)
[2018-01-16] MEDS: ONDANSETRON 4 MG INJ IV ×2 (11:33→17:18)
[2018-01-16] MEDS: SOD CHLORIDE 0.9% 1,000 ML IV (14:00)
[2018-01-16] MEDS: LIDOCAINE 1% (MPF) 5 ML VIAL SC (15:57)
[2018-01-16] MEDS: SOD CHLORIDE 0.9% 100 ML (16:10)
[2018-01-16] MEDS: NIFEdipine (XL) 60 MG TAB PO (20:58)
[2018-01-17 06:41] LABS: WHITE BLOOD COUNT 10.9 10^3/ul (4.8-10.8)
[2018-01-17 06:41] LABS: ADD MAN DIFF? NO; BASOPHILS % 0.3 % (0.0-2.0); HEMATOCRIT 24.6 % (37.0-47.0); HEMOGLOBIN 7.7 g/dl (12.0-16.0); LYMPHOCYTES # 2.2 10^3/ul (0.8-2.9); LYMPHOCYTES % 20.1 % (15.0-51.0); MEAN CORPUSCULAR HEMOGLOBIN 26.6 pg (29.0-33.0); MEAN CORPUSCULAR HGB CONC 31.3 g/dl (32.0-37.0); MEAN CORPUSCULAR VOLUME 84.8 fl (82.0-101.0); MEAN PLATELET VOLUME 8.4 fl (7.4-10.4); MONOCYTE # 0.8 10^3/ul (0.3-0.9); MONOCYTES % 7.2 % (0.0-11.0); NEUTROPHIL # 7.7 10^3/ul (1.6-7.5); NEUTROPHILS % 70.5 % (39.0-77.0); PLATELET COUNT 219 10^3/UL (140-415); RED CELL DISTRIBUTION WIDTH 17.8 % (11.5-14.5)
[2018-01-17 07:14] LABS: ANION GAP 13 (8-16); BLOOD UREA NITROGEN 9 mg/dl (7-20); CALCIUM 9.3 mg/dl (8.4-10.2); CARBON DIOXIDE 25 mmol/L (21-31); CHLORIDE 108 mmol/L (97-110); CREATININE 1.27 mg/dl (0.44-1.00); GLUCOSE 85 mg/dl (70-220); MAGNESIUM 1.4 mg/dl (1.7-2.5); PHOSPHORUS 3.9 mg/dl (2.5-4.9); POTASSIUM 3.7 mmol/L (3.5-5.1); SODIUM 142 mmol/L (135-144)
[2018-01-17 07:40] LABS: CREATINE KINASE 21 IU/L (23-200)
[2018-01-17] MEDS: SENNA/DOCUSATE NA (8.6MG/50MG) TAB PO (08:43)
[2018-01-17] MEDS: FAMOTIDINE 20 MG TAB PO (08:43)
[2018-01-17] MEDS: NIFEdipine (XL) 60 MG TAB PO (08:43)
[2018-01-17] MEDS: POTASSIUM CHLORIDE 20 MEQ POWDER FOR ORAL SOLN PO (08:43)
[2018-01-17] MEDS: LACTOBACILLUS RHAMNOSUS CAP PO ×2 (08:43→22:08)
[2018-01-17] MEDS: MEGESTROL (40 MG/ML) 10ML CUP PO (08:43)
[2018-01-17] MEDS: morphine (ER) 30 MG TAB PO ×2 (08:44→22:08)
[2018-01-17] MEDS: MUPIROCIN 2% 22 GM OINT TOP ×2 (08:46→22:09)
[2018-01-17] MEDS: ENOXAPARIN 40 MG/0.4 ML SYG SC (08:50)
[2018-01-17] MEDS: SOD CHLORIDE 0.9% 1,000 ML IV ×2 (08:51→09:15)
[2018-01-17] MEDS: DAPTOMYCIN 375 MG in SOD CHLORIDE 0.9% 100 ML IVPB (12:40)
[2018-01-17] MEDS: MAGNESIUM OXIDE 400 MG TAB PO (22:09)
[2018-01-18] MEDS: SOD CHLORIDE 0.9% 1,000 ML IV (04:56)
[2018-01-18 06:06] LABS: ADD MAN DIFF? NO
[2018-01-18 06:09] LABS: BASOPHILS % 0.3 % (0.0-2.0); HEMATOCRIT 24.2 % (37.0-47.0); HEMOGLOBIN 7.5 g/dl (12.0-16.0); LYMPHOCYTES # 1.9 10^3/ul (0.8-2.9); LYMPHOCYTES % 19.8 % (15.0-51.0); MEAN CORPUSCULAR HEMOGLOBIN 26.5 pg (29.0-33.0); MEAN CORPUSCULAR VOLUME 85.5 fl (82.0-101.0); MEAN PLATELET VOLUME 8.2 fl (7.4-10.4); MONOCYTE # 0.7 10^3/ul (0.3-0.9); MONOCYTES % 7.6 % (0.0-11.0); NEUTROPHIL # 6.9 10^3/ul (1.6-7.5); NEUTROPHILS % 70.4 % (39.0-77.0); PLATELET COUNT 216 10^3/UL (140-415); RED BLOOD COUNT 2.83 10^6/ul (4.20-5.40); RED CELL DISTRIBUTION WIDTH 17.9 % (11.5-14.5)
[2018-01-18 06:09] LABS: WHITE BLOOD COUNT 9.8 10^3/ul (4.8-10.8)
[2018-01-18 06:39] LABS: ANION GAP 12 (8-16); BLOOD UREA NITROGEN 10 mg/dl (7-20); CALCIUM 9.1 mg/dl (8.4-10.2); CARBON DIOXIDE 25 mmol/L (21-31); CHLORIDE 107 mmol/L (97-110); CREATININE 1.28 mg/dl (0.44-1.00); GLUCOSE 90 mg/dl (70-220); MAGNESIUM 1.5 mg/dl (1.7-2.5); PHOSPHORUS 4.3 mg/dl (2.5-4.9); POTASSIUM 4.1 mmol/L (3.5-5.1); SODIUM 140 mmol/L (135-144)
[2018-01-18] MEDS: SENNA/DOCUSATE NA (8.6MG/50MG) TAB PO (07:57)
[2018-01-18] MEDS: FAMOTIDINE 20 MG TAB PO (07:57)
[2018-01-18] MEDS: LACTOBACILLUS RHAMNOSUS CAP PO ×2 (07:57→21:19)
[2018-01-18] MEDS: POTASSIUM CHLORIDE 20 MEQ POWDER FOR ORAL SOLN PO (07:57)
[2018-01-18] MEDS: MAGNESIUM OXIDE 400 MG TAB PO (07:58)
[2018-01-18] MEDS: morphine (ER) 30 MG TAB PO ×2 (07:58→21:19)
[2018-01-18] MEDS: NIFEdipine (XL) 60 MG TAB PO (07:59)
[2018-01-18] MEDS: MUPIROCIN 2% 22 GM OINT TOP ×2 (07:59→21:21)
[2018-01-18] MEDS: ENOXAPARIN 40 MG/0.4 ML SYG SC (08:01)
[2018-01-18 09:15] LABS: URIC ACID 5.4 mg/dl (3.1-7.9)
[2018-01-18] MEDS: MAGNESIUM SULFATE 2 GM/50 ML 50 ML IVPB (10:50)
[2018-01-18] MEDS: DAPTOMYCIN 375 MG in SOD CHLORIDE 0.9% 100 ML IVPB (11:37)
[2018-01-19] MEDS: SOD CHLORIDE 0.9% 1,000 ML IV ×2 (01:15→14:43)
[2018-01-19] MEDS: FAMOTIDINE 20 MG TAB PO (08:12)
[2018-01-19] MEDS: SENNA/DOCUSATE NA (8.6MG/50MG) TAB PO (08:12)
[2018-01-19] MEDS: MAGNESIUM OXIDE 400 MG TAB PO ×2 (08:13→20:51)
[2018-01-19] MEDS: POTASSIUM CHLORIDE 20 MEQ POWDER FOR ORAL SOLN PO (08:13)
[2018-01-19] MEDS: LACTOBACILLUS RHAMNOSUS CAP PO ×2 (08:13→20:50)
[2018-01-19] MEDS: NIFEdipine (XL) 60 MG TAB PO (08:14)
[2018-01-19] MEDS: morphine (ER) 30 MG TAB PO ×2 (08:14→20:51)
[2018-01-19] MEDS: MUPIROCIN 2% 22 GM OINT TOP ×2 (08:16→20:50)
[2018-01-19] MEDS: ENOXAPARIN 30 MG/0.3 ML SYG SC (08:32)
[2018-01-19] MEDS: DAPTOMYCIN 375 MG in SOD CHLORIDE 0.9% 100 ML IVPB (12:15)
[2018-01-20 05:45] LABS: ADD MAN DIFF? NO
[2018-01-20 05:48] LABS: BASOPHILS % 0.3 % (0.0-2.0); HEMATOCRIT 24.5 % (37.0-47.0); HEMOGLOBIN 7.6 g/dl (12.0-16.0); LYMPHOCYTES # 1.9 10^3/ul (0.8-2.9); LYMPHOCYTES % 28.1 % (15.0-51.0); MEAN CORPUSCULAR HEMOGLOBIN 26.9 pg (29.0-33.0); MEAN CORPUSCULAR VOLUME 86.6 fl (82.0-101.0); MEAN PLATELET VOLUME 8.1 fl (7.4-10.4); MONOCYTE # 0.7 10^3/ul (0.3-0.9); NEUTROPHIL # 4.1 10^3/ul (1.6-7.5); NEUTROPHILS % 60.6 % (39.0-77.0); PLATELET COUNT 233 10^3/UL (140-415); RED BLOOD COUNT 2.83 10^6/ul (4.20-5.40); RED CELL DISTRIBUTION WIDTH 18.2 % (11.5-14.5)
[2018-01-20 05:48] LABS: WHITE BLOOD COUNT 6.7 10^3/ul (4.8-10.8)
[2018-01-20 06:32] LABS: ANION GAP 10 (8-16); BLOOD UREA NITROGEN 13 mg/dl (7-20); CALCIUM 8.8 mg/dl (8.4-10.2); CARBON DIOXIDE 25 mmol/L (21-31); CHLORIDE 110 mmol/L (97-110); CREATININE 1.15 mg/dl (0.44-1.00); GLUCOSE 90 mg/dl (70-220); POTASSIUM 4.1 mmol/L (3.5-5.1); SODIUM 141 mmol/L (135-144)
[2018-01-20] MEDS: MAGNESIUM OXIDE 400 MG TAB PO (08:55)
[2018-01-20] MEDS: FAMOTIDINE 20 MG TAB PO (08:55)
[2018-01-20] MEDS: NIFEdipine (XL) 60 MG TAB PO (08:56)
[2018-01-20] MEDS: POTASSIUM CHLORIDE 20 MEQ POWDER FOR ORAL SOLN PO (08:57)
[2018-01-20] MEDS: SENNA/DOCUSATE NA (8.6MG/50MG) TAB PO (08:57)
[2018-01-20] MEDS: morphine (ER) 30 MG TAB PO (08:58)
[2018-01-20] MEDS: MUPIROCIN 2% 22 GM OINT TOP (08:58)
[2018-01-20] MEDS: ENOXAPARIN 30 MG/0.3 ML SYG SC (09:03)
[2018-01-20 10:53] LABS: IRON 62 ug/dl (35-150)
[2018-01-20 11:02] LABS: % IRON SATURATION 19 % SAT (22-52); TOTAL IRON BINDING CAPACITY 329 ug/dl (241-421)
[2018-01-20] MEDS: LACTOBACILLUS RHAMNOSUS CAP PO (11:18)
[2018-01-20 11:58] LABS: FERRITIN 55.2 ng/ml (11.1-264.0)
[2018-01-20] MEDS: DAPTOMYCIN 375 MG in SOD CHLORIDE 0.9% 100 ML IVPB (12:47)
[2018-01-21] MEDS ORDERED: MEGESTROL (40 MG/ML) 10ML CUP PO (21:00)
== END 2018-01-20 19:00 | disposition home health service (06) | DRG 872 ==
LOC: 2NE 01-18 17:00 → FTE 08:50 → 5EC 01-16 12:49 → 6WM 12:52
PROVIDERS: Internal Medicine
PROC: 02H633Z Insertion of Infusion Device into Right Atrium, Percutaneous Approach (ICD-10-PCS; principal; 2018-01-16)
DX: A41.02 Sepsis due to Methicillin resistant Staphylococcus aureus (principal); N17.9 Acute kidney failure, unspecified; C79.31 Secondary malignant neoplasm of brain; L03.211 Cellulitis of face; G89.29 Other chronic pain; K21.9 Gastro-esophageal reflux disease without esophagitis; Z79.899 Other long term (current) drug therapy; Z22.322 Carrier or suspected carrier of Methicillin resistant Staphylococcus aureus; D64.81 Anemia due to antineoplastic chemotherapy; C50.912 Malignant neoplasm of unspecified site of left female breast; Z17.1 Estrogen receptor negative status [ER-]; Z60.2 Problems related to living alone; I10 Essential (primary) hypertension
CPT/HCPCS: 36569; 70486; 71045; 76775; 76937; 80048; 80053; 80202; 81003; 82550; 82607; 82728; 83036; 83540; 83605; 83735; 84100; 84155; 84300; 84443; 84560; 85025; 85049; 85610; 85670; 85730; 87040; 87081; 87086; 89190; 96365; 96375; 99291-25

== ENCOUNTER 2018-04-18 15:26 | Inpatient (IN) | payer OTHER, MEDICAID ==
[2018-04-18] MEDS: SOD CHLORIDE 0.9% 1,000 ML IV (17:12)
[2018-04-18 17:16] LABS: WHITE BLOOD COUNT 1.5 10^3/ul (4.8-10.8)
[2018-04-18 17:16] LABS: ABNORMAL IP MESSAGE 1; HEMATOCRIT 18.1 % (37.0-47.0); MEAN CORPUSCULAR HEMOGLOBIN 34.8 pg (29.0-33.0); MEAN CORPUSCULAR HGB CONC 34.3 g/dl (32.0-37.0); MEAN CORPUSCULAR VOLUME 101.7 fl (82.0-101.0); MEAN PLATELET VOLUME 10.3 fl (7.4-10.4); PLATELET COUNT 100 10^3/UL (140-415); RED BLOOD COUNT 1.78 10^6/ul (4.20-5.40); RED CELL DISTRIBUTION WIDTH 18.2 % (11.5-14.5)
[2018-04-18 17:17] LABS: ADD MAN DIFF? YES; POSITIVE DIFF @See below
[2018-04-18 17:19] LABS: HEMOGLOBIN 6.2 g/dl (12.0-16.0)
[2018-04-18] MEDS: morphine 4 MG/ML VIAL IV (17:27)
[2018-04-18] MEDS: ONDANSETRON 4 MG INJ IV (17:33)
[2018-04-18] MEDS: HYDROmorphONE 2 MG/ML SYG IV (17:33)
[2018-04-18 17:35] LABS: LACTIC ACID 1.8 mmol/L (0.5-2.0)
[2018-04-18 17:36] LABS: ALANINE AMINOTRANSFERASE 41 IU/L (13-69); ALBUMIN 4.1 g/dl (3.3-4.9); ALBUMIN/GLOBULIN RATIO 1.17; ALKALINE PHOSPHATASE 67 IU/L (42-121); ANION GAP 14 (5-13); ASPARTATE AMINO TRANSFERASE 47 IU/L (15-46); BILIRUBIN,INDIRECT 0.5 mg/dl (0-1.1); BILIRUBIN,TOTAL 0.5 mg/dl (0.2-1.3); BLOOD UREA NITROGEN 18 mg/dl (7-20); CALCIUM 8.7 mg/dl (8.4-10.2); CARBON DIOXIDE 30 mmol/L (21-31); CHLORIDE 93 mmol/L (97-110); CREATININE 1.15 mg/dl (0.44-1.00); Estimated GFR 49 mL/min (>60); GLUCOSE 101 mg/dl (70-220); LIPASE 37 U/L (23-300); SODIUM 137 mmol/L (135-144); TOTAL PROTEIN 7.6 g/dl (6.1-8.1)
[2018-04-18 17:44] LABS: POTASSIUM 2.9 mmol/L (3.5-5.1)
[2018-04-18 17:47] LABS: TROPONIN-I 0.013 ng/ml (0.000-0.120)
[2018-04-18 19:09] LABS: BAND NEUTROPHILS % (M) 2 % (0-4); BASOPHILS % (M) 3 % (0-2); LYMPHOCYTES #M 0.7 10^3/ul (0.8-2.9); LYMPHOCYTES % (M) 50 % (15-51); MONOCYTE #M 0.1 10^3/ul (0.3-0.9); MONOCYTES % (M) 8 % (0-11); REACTIVE LYMPHOCYTES #M 0.1 10^3/ul (0.0-0.0); REACTIVE LYMPHOCYTES% (M) 8 % (0-0); SEG NEUT #M 0.4 10^3/ul (1.6-7.5); SEGMENTED NEUTROPHILS (M) % 28 % (39-77)
[2018-04-18 19:10] LABS: ANISOCYTOSIS 2+ (0-0); ERYTHROBLAST% (NRBC) (M) 1 % (0-0); GIANT THROMBO% (M) 3 % (0-0); PLATELET ESTIMATE DECREASED; POIKILOCYTOSIS 1+ (0-0); POLYCHROMASIA 3+ (0-0); SMUDGE%M 1 % (0-0)
[2018-04-18] MEDS: POTASSIUM CHLORIDE (SR) 20 MEQ TAB PO (20:18)
[2018-04-18] MEDS: SOD CHLORIDE 0.9% 250 ML IV* (21:30)
[2018-04-18] MEDS ORDERED: ALBUTEROL/IPRATROPIUM (NEB) 3 ML AMP HHN (22:00)
[2018-04-18] MEDS ORDERED: ACETAMINOPHEN 325 MG TAB PO (22:00)
[2018-04-18] MEDS ORDERED: NACL 0.9% 3 ML SYG IV (22:00)
[2018-04-18 23:52] LABS: IMMEDIATE SPIN CROSSMATCH 1 2
[2018-04-19] MEDS ORDERED: COLLAGENASE 5 GM (UD JAR) TOP (02:45)
[2018-04-19] MEDS ORDERED: PENDING SANTYL ORDER FOR WOUND CARE XX (03:00)
[2018-04-19 05:28] LABS: ABNORMAL IP MESSAGE 1; HEMATOCRIT 24.1 % (37.0-47.0); HEMOGLOBIN 8.4 g/dl (12.0-16.0); MEAN CORPUSCULAR HEMOGLOBIN 33.1 pg (29.0-33.0); MEAN CORPUSCULAR HGB CONC 34.9 g/dl (32.0-37.0); MEAN CORPUSCULAR VOLUME 94.9 fl (82.0-101.0); MEAN PLATELET VOLUME 10.5 fl (7.4-10.4); PLATELET COUNT 88 10^3/UL (140-415); RED BLOOD COUNT 2.54 10^6/ul (4.20-5.40); RED CELL DISTRIBUTION WIDTH 17.9 % (11.5-14.5)
[2018-04-19 05:28] LABS: WHITE BLOOD COUNT 1.6 10^3/ul (4.8-10.8)
[2018-04-19 05:31] LABS: ADD MAN DIFF? YES; POSITIVE DIFF @See below
[2018-04-19 05:52] LABS: ALANINE AMINOTRANSFERASE 34 IU/L (13-69); ALBUMIN 3.6 g/dl (3.3-4.9); ALBUMIN/GLOBULIN RATIO 1.12; ALKALINE PHOSPHATASE 54 IU/L (42-121); ANION GAP 12 (5-13); ASPARTATE AMINO TRANSFERASE 39 IU/L (15-46); BILIRUBIN,INDIRECT 0.6 mg/dl (0-1.1); BILIRUBIN,TOTAL 0.6 mg/dl (0.2-1.3); BLOOD UREA NITROGEN 17 mg/dl (7-20); CALCIUM 8.3 mg/dl (8.4-10.2); CARBON DIOXIDE 30 mmol/L (21-31); CHLORIDE 99 mmol/L (97-110); Estimated GFR 47 mL/min (>60); GLUCOSE 103 mg/dl (70-220); MAGNESIUM 1.2 mg/dl (1.7-2.5); PHOSPHORUS 2.8 mg/dl (2.5-4.9); SODIUM 141 mmol/L (135-144); TOTAL PROTEIN 6.8 g/dl (6.1-8.1)
[2018-04-19] MEDS: COLLAGENASE 5 GM (UD JAR) TOP (09:00)
[2018-04-19 09:29] LABS: ANISOCYTOSIS 1+ (0-0); BAND NEUTROPHILS % (M) 2 % (0-4); GIANT THROMBO% (M) 3 % (0-0); LYMPHOCYTES #M 0.5 10^3/ul (0.8-2.9); LYMPHOCYTES % (M) 37 % (15-51); MICROCYTOSIS 1+ (0-0); MONOCYTE #M 0.5 10^3/ul (0.3-0.9); MONOCYTES % (M) 36 % (0-11); MYELOCYTES % (M) 1 % (0-0); PLATELET ESTIMATE DECREASED; POIKILOCYTOSIS 1+ (0-0); POLYCHROMASIA 2+ (0-0); REACTIVE LYMPHOCYTES% (M) 2 % (0-0); SEG NEUT #M 0.4 10^3/ul (1.6-7.5); SEGMENTED NEUTROPHILS (M) % 22 % (39-77); SMUDGE%M 1 % (0-0)
[2018-04-19] MEDS: ONDANSETRON 4 MG INJ IV (09:36)
[2018-04-19] MEDS: oxyCODONE 5 MG TAB PO ×2 (09:37→21:42)
[2018-04-19] MEDS ORDERED: ONDANSETRON INJ 8 MG in SOD CHLORIDE 0.9% 50 ML IV (13:00)
[2018-04-19] MEDS: POTASSIUM CHLORIDE (SR) 20 MEQ TAB PO (15:19)
[2018-04-19] MEDS: MAGNESIUM SULFATE 3 GM in DEXTROSE 5% 100 ML IVPB (15:20)
[2018-04-19] MEDS ORDERED: ONDANSETRON 4 MG INJ IV (16:00)
[2018-04-19] MEDS: POTASSIUM CHLORIDE 10 MEQ in SOD CHLORIDE 0.45% 1,000 ML IV (21:30)
[2018-04-20] MEDS: POTASSIUM CHLORIDE 10 MEQ in SOD CHLORIDE 0.45% 1,000 ML IV ×2 (03:24→11:22)
[2018-04-20 05:39] LABS: WHITE BLOOD COUNT 2.1 10^3/ul (4.8-10.8)
[2018-04-20 05:39] LABS: ABNORMAL IP MESSAGE 1; HEMATOCRIT 23.1 % (37.0-47.0); MEAN CORPUSCULAR HEMOGLOBIN 33.3 pg (29.0-33.0); MEAN CORPUSCULAR HGB CONC 34.6 g/dl (32.0-37.0); MEAN CORPUSCULAR VOLUME 96.3 fl (82.0-101.0); PLATELET COUNT 97 10^3/UL (140-415); RED CELL DISTRIBUTION WIDTH 18.2 % (11.5-14.5)
[2018-04-20 06:05] LABS: PHOSPHORUS 2.7 mg/dl (2.5-4.9)
[2018-04-20 06:05] LABS: MAGNESIUM 2.1 mg/dl (1.7-2.5)
[2018-04-20 06:15] LABS: ANION GAP 7 (5-13); BLOOD UREA NITROGEN 11 mg/dl (7-20); CALCIUM 8.6 mg/dl (8.4-10.2); CARBON DIOXIDE 27 mmol/L (21-31); CHLORIDE 102 mmol/L (97-110); Estimated GFR 52 mL/min (>60); GLUCOSE 86 mg/dl (70-220); POTASSIUM 3.1 mmol/L (3.5-5.1); SODIUM 136 mmol/L (135-144)
[2018-04-20 06:46] LABS: POSITIVE DIFF @See below
[2018-04-20 06:47] LABS: ADD MAN DIFF? YES
[2018-04-20] MEDS: COLLAGENASE 5 GM (UD JAR) TOP ×2 (09:00→10:00)
[2018-04-20 09:13] LABS: ANISOCYTOSIS 1+ (0-0); GIANT THROMBO% (M) 3 % (0-0); LYMPHOCYTES #M 0.8 10^3/ul (0.8-2.9); LYMPHOCYTES % (M) 41 % (15-51); MICROCYTOSIS 1+ (0-0); MONOCYTE #M 0.7 10^3/ul (0.3-0.9); MONOCYTES % (M) 37 % (0-11); PLATELET ESTIMATE DECREASED; POIKILOCYTOSIS 1+ (0-0); POLYCHROMASIA 3+ (0-0); REACTIVE LYMPHOCYTES% (M) 2 % (0-0); SEGMENTED NEUTROPHILS (M) % 20 % (39-77); SMUDGE%M 7 % (0-0); TOXIC GRANULATION 1+ (0-0)
[2018-04-20] MEDS: METOCLOPRAMIDE 10 MG INJ IV (10:00)
[2018-04-20] MEDS: LOPERAMIDE 2 MG CAP PO (13:02)
[2018-04-20] MEDS: ONDANSETRON INJ 8 MG in DEXTROSE 5% 50 ML IV (13:02)
[2018-04-20] MEDS: POTASSIUM CHLORIDE (SR) 20 MEQ TAB PO (15:40)
[2018-04-20] MEDS: oxyCODONE 5 MG TAB PO (15:44)
[2018-04-20] MEDS: FILGRASTIM 300 MCG INJ SC (17:59)
[2018-04-21] MEDS: POTASSIUM CHLORIDE 10 MEQ in SOD CHLORIDE 0.45% 1,000 ML IV ×2 (00:39→16:08)
[2018-04-21 06:08] LABS: ABNORMAL IP MESSAGE 1; HEMATOCRIT 26.2 % (37.0-47.0); HEMOGLOBIN 8.9 g/dl (12.0-16.0); MEAN PLATELET VOLUME 9.9 fl (7.4-10.4); PLATELET COUNT 103 10^3/UL (140-415); RED BLOOD COUNT 2.62 10^6/ul (4.20-5.40); RED CELL DISTRIBUTION WIDTH 18.3 % (11.5-14.5)
[2018-04-21 06:08] LABS: WHITE BLOOD COUNT 8.2 10^3/ul (4.8-10.8)
[2018-04-21 06:20] LABS: POSITIVE DIFF @See below
[2018-04-21 06:21] LABS: ADD MAN DIFF? YES
[2018-04-21 06:34] LABS: MAGNESIUM 1.6 mg/dl (1.7-2.5)
[2018-04-21 06:34] LABS: PHOSPHORUS 2.8 mg/dl (2.5-4.9)
[2018-04-21 06:46] LABS: ANION GAP 8 (5-13); BLOOD UREA NITROGEN 5 mg/dl (7-20); CALCIUM 8.7 mg/dl (8.4-10.2); CARBON DIOXIDE 22 mmol/L (21-31); CHLORIDE 105 mmol/L (97-110); CREATININE 1.08 mg/dl (0.44-1.00); Estimated GFR 53 mL/min (>60); GLUCOSE 82 mg/dl (70-220); POTASSIUM 3.7 mmol/L (3.5-5.1); SODIUM 135 mmol/L (135-144)
[2018-04-21] MEDS: COLLAGENASE 5 GM (UD JAR) TOP (07:41)
[2018-04-21 09:14] LABS: ANISOCYTOSIS 1+ (0-0); BAND NEUTROPHILS #M 1.3 10^3/ul (0.0-0.6); BAND NEUTROPHILS % (M) 16 % (0-4); GIANT THROMBO% (M) 8 % (0-0); LYMPHOCYTES #M 1.7 10^3/ul (0.8-2.9); LYMPHOCYTES % (M) 21 % (15-51); METAMYELOCYTES %M 1 % (0-0); MONOCYTE #M 0.6 10^3/ul (0.3-0.9); MONOCYTES % (M) 8 % (0-11); PLATELET ESTIMATE DECREASED; POLYCHROMASIA 1+ (0-0); SEG NEUT #M 4.5 10^3/ul (1.6-7.5); SEGMENTED NEUTROPHILS (M) % 54 % (39-77); SMUDGE%M 6 % (0-0); SPHEROCYTES 1+ (0-0)
[2018-04-21] MEDS: MAGNESIUM SULFATE 2 GM/50 ML 50 ML IVPB (10:49)
[2018-04-21] MEDS ORDERED: BARIUM SULF 2% 450 ML BTL (BERRY SMOOTHIE) PO (15:00)
[2018-04-21] MEDS: IOHEXOL 14.3 MG(I)/ML (ADULT) BTL PO (16:52)
[2018-04-21] MEDS: IOHEXOL 300MG/ML 150 ML BTL (21:05)
[2018-04-21] MEDS: SOD CHLORIDE 0.9% 100 ML (21:05)
[2018-04-21] MEDS: oxyCODONE 5 MG TAB PO (21:40)
[2018-04-22] MEDS: POTASSIUM CHLORIDE 10 MEQ in SOD CHLORIDE 0.45% 1,000 ML IV ×2 (05:10→20:52)
[2018-04-22] MEDS: COLLAGENASE 5 GM (UD JAR) TOP (08:20)
[2018-04-22] MEDS: oxyCODONE 5 MG TAB PO ×2 (08:43→18:25)
[2018-04-22] MEDS: METOCLOPRAMIDE 10 MG INJ IV (12:34)
[2018-04-22] MEDS: LOPERAMIDE 2 MG CAP PO (12:35)
[2018-04-23 06:55] LABS: WHITE BLOOD COUNT 8.2 10^3/ul (4.8-10.8)
[2018-04-23 06:55] LABS: HEMATOCRIT 23.4 % (37.0-47.0); HEMOGLOBIN 7.8 g/dl (12.0-16.0); MEAN CORPUSCULAR HEMOGLOBIN 33.6 pg (29.0-33.0); MEAN CORPUSCULAR HGB CONC 33.3 g/dl (32.0-37.0); MEAN CORPUSCULAR VOLUME 100.9 fl (82.0-101.0); MEAN PLATELET VOLUME 9.6 fl (7.4-10.4); PLATELET COUNT 105 10^3/UL (140-415); RED BLOOD COUNT 2.32 10^6/ul (4.20-5.40); RED CELL DISTRIBUTION WIDTH 18.9 % (11.5-14.5)
[2018-04-23 07:06] LABS: POSITIVE DIFF @See below
[2018-04-23 07:22] LABS: ANION GAP 4 (5-13); BLOOD UREA NITROGEN 5 mg/dl (7-20); CALCIUM 8.4 mg/dl (8.4-10.2); CARBON DIOXIDE 25 mmol/L (21-31); CHLORIDE 109 mmol/L (97-110); CREATININE 1.03 mg/dl (0.44-1.00); Estimated GFR 56 mL/min (>60); GLUCOSE 82 mg/dl (70-220); MAGNESIUM 1.3 mg/dl (1.7-2.5); PHOSPHORUS 3.1 mg/dl (2.5-4.9); SODIUM 138 mmol/L (135-144)
[2018-04-23 07:31] LABS: ADD MAN DIFF? YES
[2018-04-23] MEDS: COLLAGENASE 5 GM (UD JAR) TOP (07:46)
[2018-04-23 09:38] LABS: BAND NEUTROPHILS #M 0.2 10^3/ul (0.0-0.6); BAND NEUTROPHILS % (M) 3 % (0-4); SEGMENTED NEUTROPHILS (M) % 72 % (39-77)
[2018-04-23 09:39] LABS: ANISOCYTOSIS 1+ (0-0); GIANT THROMBO% (M) 3 % (0-0); LYMPHOCYTES #M 1.4 10^3/ul (0.8-2.9); LYMPHOCYTES % (M) 18 % (15-51); MICROCYTOSIS 1+ (0-0); MONOCYTE #M 0.5 10^3/ul (0.3-0.9); MONOCYTES % (M) 7 % (0-11); OVALOCYTES 1+ (0-0); PLATELET ESTIMATE DECREASED; POLYCHROMASIA 1+ (0-0); SEG NEUT #M 5.9 10^3/ul (1.6-7.5); SMUDGE%M 1 % (0-0)
[2018-04-23] MEDS: oxyCODONE 5 MG TAB PO (09:50)
[2018-04-23] MEDS: POTASSIUM CHLORIDE 20 MEQ POWDER FOR ORAL SOLN PO (09:50)
[2018-04-23] MEDS: MAGNESIUM SULFATE 4 GM/100 ML 100 ML IVPB (09:57)
[2018-04-23] MEDS: POTASSIUM CHLORIDE 10 MEQ in SOD CHLORIDE 0.45% 1,000 ML IV (11:48)
[2018-04-23 13:39] LABS: PATH REVIEW? YES
[2018-04-23] MEDS: POTASSIUM CHLORIDE 100 ML IVPB (15:12)
[2018-04-23] MEDS: SOD CHLORIDE 0.9% 100 ML (19:40)
[2018-04-23] MEDS: IOHEXOL 300MG/ML 150 ML BTL (19:40)
[2018-04-24 05:17] LABS: ADD MAN DIFF? NO; BASOPHILS % 0.2 % (0.0-2.0); HEMATOCRIT 24.1 % (37.0-47.0); HEMOGLOBIN 8.1 g/dl (12.0-16.0); LYMPHOCYTES # 1.4 10^3/ul (0.8-2.9); LYMPHOCYTES % 30.9 % (15.0-51.0); MEAN CORPUSCULAR HGB CONC 33.6 g/dl (32.0-37.0); MEAN CORPUSCULAR VOLUME 101.3 fl (82.0-101.0); MEAN PLATELET VOLUME 8.9 fl (7.4-10.4); MONOCYTE # 0.7 10^3/ul (0.3-0.9); MONOCYTES % 15.2 % (0.0-11.0); NEUTROPHIL # 2.4 10^3/ul (1.6-7.5); NEUTROPHILS % 52.6 % (39.0-77.0); PLATELET COUNT 102 10^3/UL (140-415); RED BLOOD COUNT 2.38 10^6/ul (4.20-5.40)
[2018-04-24 05:17] LABS: WHITE BLOOD COUNT 4.5 10^3/ul (4.8-10.8)
[2018-04-24 05:38] LABS: ANION GAP 6 (5-13); BLOOD UREA NITROGEN 9 mg/dl (7-20); CALCIUM 8.8 mg/dl (8.4-10.2); CARBON DIOXIDE 26 mmol/L (21-31); CHLORIDE 108 mmol/L (97-110); CREATININE 1.05 mg/dl (0.44-1.00); Estimated GFR 55 mL/min (>60); GLUCOSE 88 mg/dl (70-220); POTASSIUM 3.4 mmol/L (3.5-5.1); SODIUM 140 mmol/L (135-144)
[2018-04-24] MEDS: COLLAGENASE 5 GM (UD JAR) TOP (09:00)
[2018-04-24] MEDS: MAGNESIUM SULFATE 2 GM/50 ML 50 ML IVPB (10:39)
[2018-04-24] MEDS: POTASSIUM CHLORIDE 20 MEQ POWDER FOR ORAL SOLN PO (10:39)
== END 2018-04-24 16:20 | disposition home or self-care (01) | DRG 809 ==
LOC: PP2 19:55 → E/R 15:26
PROC: 30233N1 Transfusion of Nonautologous Red Blood Cells into Peripheral Vein, Percutaneous Approach (ICD-10-PCS; principal; 2018-04-18)
DX: D70.1 Agranulocytosis secondary to cancer chemotherapy (principal); N17.9 Acute kidney failure, unspecified; C71.9 Malignant neoplasm of brain, unspecified; C50.919 Malignant neoplasm of unspecified site of unspecified female breast; Z17.0 Estrogen receptor positive status [ER+]; R19.7 Diarrhea, unspecified; E87.6 Hypokalemia
CPT/HCPCS: 36415; 36430; 71045; 71260; 74177; 80048; 80053; 83605; 83690; 83735; 84100; 84484; 85025; 86850; 86900; 86901; 86920; 87075; 93005; 96374; 96375; 97162; 99291-25

== ENCOUNTER → 2018-08-26 | Outpatient (CLI) | payer MEDICAID | END | disposition home or self-care (01) | LOC: EKG 09:39 | DX: C50.919 Malignant neoplasm of unspecified site of unspecified female breast (principal) | CPT/HCPCS: 93306 ==

== ENCOUNTER 2018-11-12 05:49 | Inpatient (IN) | payer MEDICAID, OTHER ==
[2018-11-06 14:42] LABS: ADD MAN DIFF? NO
[2018-11-06 14:43] LABS: BASOPHILS % 0.4 % (0.0-2.0); EOSINOPHILS # 0.2 10^3/ul (0.0-0.5); EOSINOPHILS % 3.1 % (0.0-7.0); HEMATOCRIT 39.6 % (37.0-47.0); HEMOGLOBIN 13.2 g/dl (12.0-16.0); LYMPHOCYTES # 1.9 10^3/ul (0.8-2.9); LYMPHOCYTES % 27.1 % (15.0-51.0); MEAN CORPUSCULAR HEMOGLOBIN 31.3 pg (29.0-33.0); MEAN CORPUSCULAR HGB CONC 33.3 g/dl (32.0-37.0); MEAN CORPUSCULAR VOLUME 93.8 fl (82.0-101.0); MEAN PLATELET VOLUME 8.2 fl (7.4-10.4); MONOCYTE # 0.6 10^3/ul (0.3-0.9); MONOCYTES % 8.2 % (0.0-11.0); NEUTROPHIL # 4.4 10^3/ul (1.6-7.5); NEUTROPHILS % 60.9 % (39.0-77.0); PLATELET COUNT 298 10^3/UL (140-415); RED BLOOD COUNT 4.22 10^6/ul (4.20-5.40); RED CELL DISTRIBUTION WIDTH 13.3 % (11.5-14.5)
[2018-11-06 14:43] LABS: WHITE BLOOD COUNT 7.2 10^3/ul (4.8-10.8)
[2018-11-06 15:00] LABS: ALANINE AMINOTRANSFERASE 23 IU/L (13-69); ALBUMIN 4.7 g/dl (3.3-4.9); ALKALINE PHOSPHATASE 103 IU/L (42-121); ANION GAP 10 (5-13); ASPARTATE AMINO TRANSFERASE 26 IU/L (15-46); BILIRUBIN,INDIRECT 0.5 mg/dl (0-1.1); BILIRUBIN,TOTAL 0.5 mg/dl (0.2-1.3); BLOOD UREA NITROGEN 31 mg/dl (7-20); CALCIUM 10.2 mg/dl (8.4-10.2); CARBON DIOXIDE 28 mmol/L (21-31); CHLORIDE 102 mmol/L (97-110); CREATININE 1.28 mg/dl (0.44-1.00); Estimated GFR 44 mL/min (>60); GLUCOSE 98 mg/dl (70-220); POTASSIUM 3.5 mmol/L (3.5-5.1); SODIUM 140 mmol/L (135-144); TOTAL PROTEIN 9.4 g/dl (6.1-8.1)
[2018-11-06 15:10] LABS: INR 0.88; PT RATIO 0.9
[2018-11-06 15:11] LABS: PARTIAL THROMBOPLASTIN TIME 28.1 Sec (23.0-35.0)
[2018-11-12] MEDS ORDERED: CEFAZOLIN 2 GM/50 ML (PMX) 50 ML IVPB (06:00)
[2018-11-12] MEDS ORDERED: GENTAMICIN 160 MG in DEXTROSE 5% 100 ML IVPB (06:00)
[2018-11-12] MEDS: SOD CHLORIDE 0.9% 1,000 ML IV ×2 (07:39→21:18)
[2018-11-12] MEDS ORDERED: EPHEDrine 25 MG/5 ML SYG (07:49)
[2018-11-12] MEDS ORDERED: MIDAZOLAM 1 MG/ML 2 ML INJ (07:49)
[2018-11-12] MEDS ORDERED: CEFAZOLIN 1 GM INJ (08:06)
[2018-11-12] MEDS ORDERED: PROPOFOL 20 ML ×2 (08:06→08:39)
[2018-11-12] MEDS ORDERED: SUCCINYLCHOLINE CHLORIDE 100 MG/5 ML SYG IV (08:06)
[2018-11-12] MEDS ORDERED: LIDOCAINE 2% (SDV) 5 ML INJ (08:06)
[2018-11-12] MEDS ORDERED: FAMOTIDINE 20 MG INJ (08:07)
[2018-11-12] MEDS ORDERED: ONDANSETRON 4 MG INJ (08:07)
[2018-11-12] MEDS ORDERED: DEXAMETHASONE 4 MG/ML 5 ML INJ (08:07)
[2018-11-12] MEDS: GENTAMICIN 80 MG INJ (08:53)
[2018-11-12] MEDS: POLYMYXIN/BACITRACIN 1L IRRIG (08:53)
[2018-11-12] MEDS: MUPIROCIN 2% 15 GM CR (09:24)
[2018-11-12] MEDS ORDERED: ACETAMINOPHEN 1000MG/100ML IV 100 ML IVPB (09:30)
[2018-11-12] MEDS ORDERED: HYDROmorphONE 2 MG/ML SYG (09:40)
[2018-11-12] MEDS: LIDOCAINE 1%/EPI 30 ML INJ ×2 (10:09→10:10)
[2018-11-12] MEDS: BUPIVACAINE 0.25% (MPF) 30 ML INJ ×2 (10:09)
[2018-11-12] MEDS ORDERED: KETOROLAC 30 MG INJ (11:27)
[2018-11-12] MEDS ORDERED: EPHEDrine 25 MG/5 ML SYG IV (12:00)
[2018-11-12] MEDS ORDERED: HYDROmorphONE 1 MG/5 ML IV SYRINGE IV ×3 (12:00)
[2018-11-12] MEDS ORDERED: ONDANSETRON 4 MG INJ IV (12:00)
[2018-11-12] MEDS ORDERED: DIPHENHYDRAMINE 50 MG INJ IV (12:00)
[2018-11-12] MEDS ORDERED: PROCHLORPERAZINE 10 MG INJ IV (12:00)
[2018-11-12] MEDS ORDERED: FENTAnyl 50 MCG/ML VIAL IV ×3 (12:00)
[2018-11-12] MEDS ORDERED: LABETALOL HCL 20MG INJ IV (12:00)
[2018-11-12] MEDS ORDERED: hydrALAzine 20 MG INJ IV (12:00)
[2018-11-12] MEDS: ONDANSETRON 4 MG INJ IV ×3 (12:44→20:59)
[2018-11-12] MEDS: MEPERIDINE 25 MG INJ IV (12:44)
[2018-11-12] MEDS: D5W-0.45 NACL + KCL 20 MEQ 1,000 ML IV ×2 (17:23→18:29)
[2018-11-12] MEDS: morphine 2 MG INJ IV (18:28)
[2018-11-12] MEDS: LACTATED RINGER'S 1,000 ML IV (21:17)
[2018-11-13] MEDS: D5W-0.45 NACL + KCL 20 MEQ 1,000 ML IV ×3 (01:23→12:49)
[2018-11-13] MEDS: ONDANSETRON 4 MG INJ IV (02:39)
[2018-11-13] MEDS: morphine 2 MG INJ IV (02:40)
[2018-11-13] MEDS: HYDROCODONE/APAP (5/325) TAB PO ×3 (08:21→20:26)
[2018-11-13] MEDS: SOD CHLORIDE 0.9% 1,000 ML IV (08:40)
[2018-11-13] MEDS: HYDROCHLOROTHIAZIDE 12.5 MG CAP PO (18:01)
[2018-11-13] MEDS: BENAZEPRIL 20 MG TAB PO (18:01)
[2018-11-14] MEDS: D5W-0.45 NACL + KCL 20 MEQ 1,000 ML IV ×3 (00:11→16:51)
[2018-11-14] MEDS: HYDROCODONE/APAP (5/325) TAB PO ×4 (02:38→22:49)
[2018-11-14 05:36] LABS: ADD MAN DIFF? NO
[2018-11-14 05:41] LABS: BASOPHILS % 0.5 % (0.0-2.0); EOSINOPHILS # 0.1 10^3/ul (0.0-0.5); EOSINOPHILS % 1.1 % (0.0-7.0); HEMOGLOBIN 9.6 g/dl (12.0-16.0); LYMPHOCYTES # 1.9 10^3/ul (0.8-2.9); LYMPHOCYTES % 21.2 % (15.0-51.0); MEAN CORPUSCULAR HEMOGLOBIN 31.9 pg (29.0-33.0); MEAN CORPUSCULAR HGB CONC 33.1 g/dl (32.0-37.0); MEAN CORPUSCULAR VOLUME 96.3 fl (82.0-101.0); MEAN PLATELET VOLUME 8.6 fl (7.4-10.4); MONOCYTE # 0.6 10^3/ul (0.3-0.9); NEUTROPHIL # 6.1 10^3/ul (1.6-7.5); NEUTROPHILS % 69.6 % (39.0-77.0); PLATELET COUNT 235 10^3/UL (140-415); RED BLOOD COUNT 3.01 10^6/ul (4.20-5.40); RED CELL DISTRIBUTION WIDTH 13.3 % (11.5-14.5)
[2018-11-14 05:41] LABS: WHITE BLOOD COUNT 8.7 10^3/ul (4.8-10.8)
[2018-11-14 06:10] LABS: ANION GAP 6 (5-13); BLOOD UREA NITROGEN 23 mg/dl (7-20); CALCIUM 8.8 mg/dl (8.4-10.2); CARBON DIOXIDE 30 mmol/L (21-31); CHLORIDE 106 mmol/L (97-110); Estimated GFR 58 mL/min (>60); GLUCOSE 98 mg/dl (70-220); POTASSIUM 3.4 mmol/L (3.5-5.1); SODIUM 142 mmol/L (135-144)
[2018-11-14] MEDS: HYDROCHLOROTHIAZIDE 12.5 MG CAP PO (08:41)
[2018-11-14] MEDS: BENAZEPRIL 20 MG TAB PO (08:41)
[2018-11-14] MEDS: CEFAZOLIN 1 GM/50 ML (PMX) 50 ML IVPB ×2 (13:56→21:06)
[2018-11-14] MEDS: BISACODYL (EC) 5 MG TAB PO (16:35)
[2018-11-14] MEDS: POTASSIUM CHLORIDE (SR) 20 MEQ TAB PO (16:35)
[2018-11-14] MEDS: MAGNESIUM HYDROXIDE 30ML CUP PO (21:00)
[2018-11-15] MEDS: D5W-0.45 NACL + KCL 20 MEQ 1,000 ML IV (01:54)
[2018-11-15] MEDS: HYDROCODONE/APAP (5/325) TAB PO ×4 (04:12→23:29)
[2018-11-15] MEDS: CEFAZOLIN 1 GM/50 ML (PMX) 50 ML IVPB ×3 (05:35→23:34)
[2018-11-15 05:56] LABS: ADD MAN DIFF? NO
[2018-11-15 06:21] LABS: BASOPHILS % 0.4 % (0.0-2.0); EOSINOPHILS # 0.3 10^3/ul (0.0-0.5); EOSINOPHILS % 3.6 % (0.0-7.0); HEMATOCRIT 28.9 % (37.0-47.0); HEMOGLOBIN 9.3 g/dl (12.0-16.0); LYMPHOCYTES # 2.1 10^3/ul (0.8-2.9); LYMPHOCYTES % 28.1 % (15.0-51.0); MEAN CORPUSCULAR HEMOGLOBIN 31.2 pg (29.0-33.0); MEAN CORPUSCULAR HGB CONC 32.2 g/dl (32.0-37.0); MEAN PLATELET VOLUME 8.5 fl (7.4-10.4); MONOCYTE # 0.6 10^3/ul (0.3-0.9); MONOCYTES % 8.3 % (0.0-11.0); NEUTROPHIL # 4.5 10^3/ul (1.6-7.5); NEUTROPHILS % 59.2 % (39.0-77.0); PLATELET COUNT 239 10^3/UL (140-415); RED BLOOD COUNT 2.98 10^6/ul (4.20-5.40); RED CELL DISTRIBUTION WIDTH 13.2 % (11.5-14.5)
[2018-11-15 06:21] LABS: WHITE BLOOD COUNT 7.6 10^3/ul (4.8-10.8)
[2018-11-15] MEDS: BENAZEPRIL 20 MG TAB PO (08:16)
[2018-11-15] MEDS: HYDROCHLOROTHIAZIDE 12.5 MG CAP PO (08:17)
[2018-11-15] MEDS: ACETAMINOPHEN 325 MG TAB PO ×2 (09:25→20:34)
[2018-11-15] MEDS: POTASSIUM CHLORIDE (SR) 20 MEQ TAB PO (12:45)
[2018-11-15] MEDS: MAGNESIUM HYDROXIDE 30ML CUP PO (20:49)
[2018-11-16 06:19] LABS: ADD MAN DIFF? NO
[2018-11-16] MEDS: CEFAZOLIN 1 GM/50 ML (PMX) 50 ML IVPB ×2 (06:19→13:19)
[2018-11-16 06:22] LABS: BASOPHILS % 0.6 % (0.0-2.0); EOSINOPHILS # 0.5 10^3/ul (0.0-0.5); EOSINOPHILS % 6.9 % (0.0-7.0); HEMATOCRIT 29.4 % (37.0-47.0); HEMOGLOBIN 9.9 g/dl (12.0-16.0); LYMPHOCYTES # 2.1 10^3/ul (0.8-2.9); MEAN CORPUSCULAR HEMOGLOBIN 31.7 pg (29.0-33.0); MEAN CORPUSCULAR HGB CONC 33.7 g/dl (32.0-37.0); MEAN CORPUSCULAR VOLUME 94.2 fl (82.0-101.0); MEAN PLATELET VOLUME 8.4 fl (7.4-10.4); MONOCYTE # 0.6 10^3/ul (0.3-0.9); MONOCYTES % 8.6 % (0.0-11.0); NEUTROPHIL # 3.7 10^3/ul (1.6-7.5); NEUTROPHILS % 53.8 % (39.0-77.0); PLATELET COUNT 272 10^3/UL (140-415); RED BLOOD COUNT 3.12 10^6/ul (4.20-5.40); RED CELL DISTRIBUTION WIDTH 12.9 % (11.5-14.5)
[2018-11-16 06:22] LABS: WHITE BLOOD COUNT 6.9 10^3/ul (4.8-10.8)
[2018-11-16] MEDS: HYDROCODONE/APAP (5/325) TAB PO ×2 (06:26→13:19)
[2018-11-16] MEDS: BENAZEPRIL 20 MG TAB PO (08:21)
[2018-11-16] MEDS: HYDROCHLOROTHIAZIDE 12.5 MG CAP PO (08:21)
== END 2018-11-16 17:15 | disposition home or self-care (01) | DRG 578 ==
LOC: REC 05:49 → 2NE 15:51
PROC: 0HTU0ZZ Resection of Left Breast, Open Approach (ICD-10-PCS; principal; 2018-11-12 07:30)
PROC: 07B60ZZ Excision of Left Axillary Lymphatic, Open Approach (ICD-10-PCS; 2018-11-12 07:30)
PROC: 0HRUX7Z (ICD-10-PCS; 2018-11-12 07:44)
PROC: 0JX80ZC Transfer Abdomen Subcutaneous Tissue and Fascia with Skin, Subcutaneous Tissue and Fascia, Open Approach (ICD-10-PCS; 2018-11-12 07:44)
PROC: 0HBLXZZ Excision of Left Lower Leg Skin, External Approach (ICD-10-PCS; 2018-11-12 07:44)
DX: C50.912 Malignant neoplasm of unspecified site of left female breast (principal); I10 Essential (primary) hypertension; Z92.21 Personal history of antineoplastic chemotherapy; Z92.3 Personal history of irradiation
CPT/HCPCS: 71045; 80048; 80053; 84703; 85025; 85610; 85730; 86850; 86900; 86901; 88309; 88331; 93005

== ENCOUNTER 2018-12-05 12:52 | Inpatient (IN) | payer MEDICAID ==
[2018-12-05] MEDS: LACTATED RINGER'S 1,000 ML IV (13:41)
[2018-12-05] MEDS ORDERED: SILVER SULFADIAZINE 1% 400 GM CR TOP (14:00)
[2018-12-05] MEDS: SILVER SULFADIAZINE 1% 25 GM CR TOP ×2 (14:00→21:15)
[2018-12-05 14:12] LABS: ADD MAN DIFF? NO
[2018-12-05 14:15] LABS: BASOPHIL # 0.1 10^3/ul (0.0-0.1); BASOPHILS % 0.6 % (0.0-2.0); EOSINOPHILS # 0.6 10^3/ul (0.0-0.5); EOSINOPHILS % 5.5 % (0.0-7.0); HEMATOCRIT 33.9 % (37.0-47.0); HEMOGLOBIN 11.2 g/dl (12.0-16.0); MEAN CORPUSCULAR HEMOGLOBIN 31.7 pg (29.0-33.0); MEAN PLATELET VOLUME 8.2 fl (7.4-10.4); MONOCYTE # 0.7 10^3/ul (0.3-0.9); MONOCYTES % 6.5 % (0.0-11.0); NEUTROPHILS % 68.2 % (39.0-77.0); PLATELET COUNT 366 10^3/UL (140-415); RED BLOOD COUNT 3.53 10^6/ul (4.20-5.40); RED CELL DISTRIBUTION WIDTH 12.7 % (11.5-14.5)
[2018-12-05 14:15] LABS: WHITE BLOOD COUNT 10.2 10^3/ul (4.8-10.8)
[2018-12-05 14:35] LABS: ANION GAP 11 (5-13); BLOOD UREA NITROGEN 33 mg/dl (7-20); CALCIUM 10.1 mg/dl (8.4-10.2); CARBON DIOXIDE 28 mmol/L (21-31); CHLORIDE 100 mmol/L (97-110); Estimated GFR 58 mL/min (>60); GLUCOSE 88 mg/dl (70-220); POTASSIUM 3.6 mmol/L (3.5-5.1); SODIUM 139 mmol/L (135-144)
[2018-12-05] MEDS ORDERED: VANCOMYCIN IV PER PHARMACY XX (19:00)
[2018-12-05] MEDS ORDERED: VANCOMYCIN 1 GM (PMX) 250 ML (20:55)
[2018-12-05] MEDS: VANCOMYCIN 1.25 GM/NS 250 ML 250 ML IVPB (21:15)
[2018-12-06] MEDS: PANTOPRAZOLE (EC) 40 MG TAB PO (05:54)
[2018-12-06 06:00] LABS: ADD MAN DIFF? NO
[2018-12-06 06:03] LABS: BASOPHIL # 0.1 10^3/ul (0.0-0.1); BASOPHILS % 0.6 % (0.0-2.0); EOSINOPHILS # 0.6 10^3/ul (0.0-0.5); EOSINOPHILS % 5.9 % (0.0-7.0); HEMATOCRIT 30.4 % (37.0-47.0); LYMPHOCYTES # 1.6 10^3/ul (0.8-2.9); LYMPHOCYTES % 15.8 % (15.0-51.0); MEAN CORPUSCULAR HEMOGLOBIN 31.3 pg (29.0-33.0); MEAN CORPUSCULAR HGB CONC 32.9 g/dl (32.0-37.0); MEAN CORPUSCULAR VOLUME 95.3 fl (82.0-101.0); MEAN PLATELET VOLUME 8.1 fl (7.4-10.4); MONOCYTE # 0.9 10^3/ul (0.3-0.9); MONOCYTES % 9.3 % (0.0-11.0); NEUTROPHIL # 6.8 10^3/ul (1.6-7.5); NEUTROPHILS % 68.1 % (39.0-77.0); PLATELET COUNT 350 10^3/UL (140-415); RED BLOOD COUNT 3.19 10^6/ul (4.20-5.40); RED CELL DISTRIBUTION WIDTH 12.5 % (11.5-14.5)
[2018-12-06 06:03] LABS: WHITE BLOOD COUNT 9.9 10^3/ul (4.8-10.8)
[2018-12-06 06:48] LABS: ANION GAP 7 (5-13); BLOOD UREA NITROGEN 27 mg/dl (7-20); CALCIUM 9.6 mg/dl (8.4-10.2); CARBON DIOXIDE 32 mmol/L (21-31); CHLORIDE 100 mmol/L (97-110); CREATININE 0.96 mg/dl (0.44-1.00); Estimated GFR > 60 mL/min (>60); GLUCOSE 98 mg/dl (70-220); POTASSIUM 3.3 mmol/L (3.5-5.1); SODIUM 139 mmol/L (135-144)
[2018-12-06] MEDS: POTASSIUM CHLORIDE (SR) 20 MEQ TAB PO (09:03)
[2018-12-06] MEDS: BENAZEPRIL 20 MG TAB PO (09:04)
[2018-12-06] MEDS: SILVER SULFADIAZINE 1% 25 GM CR TOP ×2 (09:04→21:13)
[2018-12-06] MEDS: HYDROCHLOROTHIAZIDE 12.5 MG CAP PO (09:04)
[2018-12-06] MEDS: DOCUSATE SODIUM 100 MG CAP PO (09:04)
[2018-12-06] MEDS: ACETAMINOPHEN 325 MG TAB PO (09:07)
[2018-12-06] MEDS: VANCOMYCIN 750 MG (PMX) 250 ML IVPB ×2 (11:47→23:53)
[2018-12-06] MEDS ORDERED: VANCOMYCIN 500 MG (PMX) 100 ML IVPB (12:00)
[2018-12-06] MEDS ORDERED: VANCOMYCIN 1 GM 250 ML IVPB (20:30)
[2018-12-07] MEDS: PANTOPRAZOLE (EC) 40 MG TAB PO (05:53)
[2018-12-07] MEDS: BENAZEPRIL 20 MG TAB PO (08:29)
[2018-12-07] MEDS: DOCUSATE SODIUM 100 MG CAP PO (08:29)
[2018-12-07] MEDS: HYDROCHLOROTHIAZIDE 12.5 MG CAP PO (08:30)
[2018-12-07] MEDS: VANCOMYCIN 750 MG (PMX) 250 ML IVPB (12:23)
[2018-12-07] MEDS: SILVER SULFADIAZINE 1% 25 GM CR TOP ×2 (12:24→20:20)
[2018-12-07] MEDS: MUPIROCIN 2% 22 GM OINT TOP ×2 (12:24→20:20)
[2018-12-07] MEDS: ACETAMINOPHEN 325 MG TAB PO (23:12)
[2018-12-07 23:51] LABS: VANCOMYCIN,TROUGH 15.4 ug/ml (10.0-20.0)
[2018-12-08] MEDS: VANCOMYCIN 750 MG (PMX) 250 ML IVPB ×2 (00:30→11:40)
[2018-12-08] MEDS: PANTOPRAZOLE (EC) 40 MG TAB PO (05:52)
[2018-12-08] MEDS: DOCUSATE SODIUM 100 MG CAP PO (08:31)
[2018-12-08] MEDS: BENAZEPRIL 20 MG TAB PO (08:31)
[2018-12-08] MEDS: HYDROCHLOROTHIAZIDE 12.5 MG CAP PO (08:31)
[2018-12-08] MEDS: SILVER SULFADIAZINE 1% 25 GM CR TOP (08:32)
[2018-12-08] MEDS: MUPIROCIN 2% 22 GM OINT TOP (08:32)
[2018-12-08] MEDS: DAKINS 0.0125%(1/40) 473 ML SOLUTION TP (21:38)
[2018-12-08] MEDS: TRIMETHOPRIM/SULFAMETHOX (DS) TAB PO (21:38)
[2018-12-09] MEDS: DAKINS 0.0125%(1/40) 473 ML SOLUTION TP ×4 (01:54→12:35)
[2018-12-09] MEDS: PANTOPRAZOLE (EC) 40 MG TAB PO (05:14)
[2018-12-09 06:45] LABS: CREATININE 1.04 mg/dl (0.44-1.00)
[2018-12-09 06:45] LABS: BLOOD UREA NITROGEN 28 mg/dl (7-20)
[2018-12-09] MEDS: TRIMETHOPRIM/SULFAMETHOX (DS) TAB PO ×2 (09:00→20:54)
[2018-12-09] MEDS: DOCUSATE SODIUM 100 MG CAP PO (09:00)
[2018-12-09] MEDS: BENAZEPRIL 20 MG TAB PO (09:00)
[2018-12-09] MEDS: HYDROCHLOROTHIAZIDE 12.5 MG CAP PO (09:00)
[2018-12-09] MEDS ORDERED: POLYMYXIN/BACITRACIN 1L IRRIG (13:23)
[2018-12-09] MEDS ORDERED: GENTAMICIN 80 MG INJ ×2 (13:23→16:00)
[2018-12-09] MEDS ORDERED: FENTAnyl 50 MCG/ML VIAL ×2 (14:29→16:39)
[2018-12-09] MEDS ORDERED: GENTAMICIN 120 MG/NS (PMX) 100 ML IVPB (15:00)
[2018-12-09] MEDS: GENTAMICIN 160 MG in SOD CHLORIDE 0.9% 100 ML IVPB (15:04)
[2018-12-09] MEDS: LIDOCAINE 1%/EPI 30 ML INJ (15:19)
[2018-12-09] MEDS: BUPIVACAINE 0.25% (MPF) 30 ML INJ (15:21)
[2018-12-09] MEDS ORDERED: DESFLURANE 15 MIN (16:00)
[2018-12-09] MEDS ORDERED: GLYCOPYRROLATE 0.4 MG INJ (16:00)
[2018-12-09] MEDS ORDERED: SUGAMMADEX SODIUM 200 MG/2 ML VIAL IV (16:13)
[2018-12-09] MEDS ORDERED: PROPOFOL 20 ML (16:13)
[2018-12-09] MEDS ORDERED: SUCCINYLCHOLINE CHLORIDE 100 MG/5 ML SYG IV (16:13)
[2018-12-09] MEDS ORDERED: LIDOCAINE 100 MG SYRINGE (16:13)
[2018-12-09] MEDS ORDERED: ROCURONIUM 50 MG INJ (16:13)
[2018-12-09] MEDS ORDERED: KETOROLAC 30 MG INJ (16:13)
[2018-12-09] MEDS ORDERED: MEPERIDINE 25 MG INJ IV (17:00)
[2018-12-09] MEDS ORDERED: EPHEDrine 25 MG/5 ML SYG IV (17:00)
[2018-12-09] MEDS ORDERED: FENTAnyl 50 MCG/ML VIAL IV ×2 (17:00)
[2018-12-09] MEDS ORDERED: HYDROmorphONE 1 MG/5 ML IV SYRINGE IV ×2 (17:00)
[2018-12-09] MEDS ORDERED: ONDANSETRON 4 MG INJ IV (17:00)
[2018-12-09] MEDS ORDERED: hydrALAzine 20 MG INJ IV (17:00)
[2018-12-09] MEDS ORDERED: LABETALOL HCL 20MG INJ (17:05)
[2018-12-09] MEDS: ONDANSETRON 4 MG INJ IV (17:09)
[2018-12-09] MEDS: FENTAnyl 50 MCG/ML VIAL IV ×2 (17:10→17:18)
[2018-12-09] MEDS: LABETALOL HCL 20MG INJ IV (17:12)
[2018-12-09] MEDS: HYDROmorphONE 1 MG/5 ML IV SYRINGE IV (17:21)
[2018-12-09] MEDS: DIPHENHYDRAMINE 50 MG INJ IV (17:28)
[2018-12-09] MEDS: HYDROCODONE/APAP (5/325) TAB PO (20:59)
[2018-12-10] MEDS: HYDROCODONE/APAP (5/325) TAB PO ×3 (04:17→23:57)
[2018-12-10] MEDS: PANTOPRAZOLE (EC) 40 MG TAB PO (05:55)
[2018-12-10 06:02] LABS: ADD MAN DIFF? NO
[2018-12-10 06:04] LABS: WHITE BLOOD COUNT 7.6 10^3/ul (4.8-10.8)
[2018-12-10 06:04] LABS: BASOPHILS % 0.4 % (0.0-2.0); EOSINOPHILS # 0.8 10^3/ul (0.0-0.5); EOSINOPHILS % 10.2 % (0.0-7.0); HEMATOCRIT 28.2 % (37.0-47.0); HEMOGLOBIN 9.1 g/dl (12.0-16.0); LYMPHOCYTES # 1.6 10^3/ul (0.8-2.9); LYMPHOCYTES % 20.9 % (15.0-51.0); MEAN CORPUSCULAR HEMOGLOBIN 31.1 pg (29.0-33.0); MEAN CORPUSCULAR HGB CONC 32.3 g/dl (32.0-37.0); MEAN CORPUSCULAR VOLUME 96.2 fl (82.0-101.0); MEAN PLATELET VOLUME 7.9 fl (7.4-10.4); MONOCYTE # 0.8 10^3/ul (0.3-0.9); MONOCYTES % 10.3 % (0.0-11.0); NEUTROPHIL # 4.4 10^3/ul (1.6-7.5); NEUTROPHILS % 57.8 % (39.0-77.0); PLATELET COUNT 285 10^3/UL (140-415); RED BLOOD COUNT 2.93 10^6/ul (4.20-5.40); RED CELL DISTRIBUTION WIDTH 12.4 % (11.5-14.5)
[2018-12-10] MEDS: TRIMETHOPRIM/SULFAMETHOX (DS) TAB PO (08:25)
[2018-12-10] MEDS: HYDROCHLOROTHIAZIDE 12.5 MG CAP PO (08:26)
[2018-12-10] MEDS: BENAZEPRIL 20 MG TAB PO (08:26)
[2018-12-10] MEDS: DOCUSATE SODIUM 100 MG CAP PO (08:26)
[2018-12-10 12:29] LABS: ANION GAP 9 (5-13); BLOOD UREA NITROGEN 35 mg/dl (7-20); CARBON DIOXIDE 25 mmol/L (21-31); CHLORIDE 104 mmol/L (97-110); CREATININE 1.31 mg/dl (0.44-1.00); Estimated GFR 42 mL/min (>60); GLUCOSE 84 mg/dl (70-220); SODIUM 138 mmol/L (135-144)
[2018-12-10] MEDS: TRIMETHOPRIM/SULFAMETHOXAZOLE 15 ML in DEXTROSE 5% 500 ML IVPB (14:19)
[2018-12-10] MEDS: KETOROLAC 30 MG INJ IV (15:14)
[2018-12-10] MEDS: DAPTOMYCIN IVPB (16:17)
[2018-12-10] MEDS: SOD CHLORIDE 0.9% IVPB (16:17)
[2018-12-11] MEDS: PANTOPRAZOLE (EC) 40 MG TAB PO (05:07)
[2018-12-11] MEDS: HYDROCODONE/APAP (5/325) TAB PO ×4 (05:42→23:05)
[2018-12-11 05:45] LABS: ADD MAN DIFF? NO
[2018-12-11 05:54] LABS: ABNORMAL IP MESSAGE 1; BASOPHILS % 0.4 % (0.0-2.0); EOSINOPHILS # 2.1 10^3/ul (0.0-0.5); HEMATOCRIT 32.2 % (37.0-47.0); HEMOGLOBIN 10.6 g/dl (12.0-16.0); LYMPHOCYTES # 1.4 10^3/ul (0.8-2.9); LYMPHOCYTES % 15.5 % (15.0-51.0); MEAN CORPUSCULAR HEMOGLOBIN 32.1 pg (29.0-33.0); MEAN CORPUSCULAR HGB CONC 32.9 g/dl (32.0-37.0); MEAN CORPUSCULAR VOLUME 97.6 fl (82.0-101.0); MEAN PLATELET VOLUME 8.8 fl (7.4-10.4); MONOCYTE # 0.9 10^3/ul (0.3-0.9); MONOCYTES % 9.4 % (0.0-11.0); NEUTROPHIL # 4.6 10^3/ul (1.6-7.5); NEUTROPHILS % 51.4 % (39.0-77.0)
[2018-12-11 05:57] LABS: PLATELET COUNT 346 10^3/UL (140-415); POSITIVE DIFF @See below
[2018-12-11 06:10] LABS: ANION GAP 6 (5-13); BLOOD UREA NITROGEN 29 mg/dl (7-20); CALCIUM 9.7 mg/dl (8.4-10.2); CARBON DIOXIDE 27 mmol/L (21-31); CHLORIDE 104 mmol/L (97-110); CREATININE 1.36 mg/dl (0.44-1.00); Estimated GFR 41 mL/min (>60); GLUCOSE 85 mg/dl (70-220); POTASSIUM 4.6 mmol/L (3.5-5.1); SODIUM 137 mmol/L (135-144)
[2018-12-11] MEDS: ONDANSETRON 4 MG INJ IV (08:19)
[2018-12-11] MEDS: HYDROmorphONE 0.5 MG/0.5 ML SYG IV (08:20)
[2018-12-11] MEDS: BENAZEPRIL 20 MG TAB PO (08:55)
[2018-12-11] MEDS: DOCUSATE SODIUM 100 MG CAP PO (08:55)
[2018-12-11] MEDS: HYDROCHLOROTHIAZIDE 12.5 MG CAP PO (08:55)
[2018-12-11] MEDS: SOD CHLORIDE 0.9% IVPB (16:08)
[2018-12-11] MEDS: DAPTOMYCIN IVPB (16:08)
[2018-12-11] MEDS: SOD CHLORIDE 0.45% 1,000 ML IV (18:30)
[2018-12-12] MEDS: HYDROCODONE/APAP (5/325) TAB PO ×5 (03:37→22:56)
[2018-12-12 05:54] LABS: ADD MAN DIFF? NO
[2018-12-12 05:58] LABS: ABNORMAL IP MESSAGE 1; BASOPHILS % 0.4 % (0.0-2.0); EOSINOPHILS # 2.5 10^3/ul (0.0-0.5); EOSINOPHILS % 27.7 % (0.0-7.0); HEMATOCRIT 30.3 % (37.0-47.0); LYMPHOCYTES # 1.6 10^3/ul (0.8-2.9); LYMPHOCYTES % 17.2 % (15.0-51.0); MEAN CORPUSCULAR HEMOGLOBIN 31.3 pg (29.0-33.0); MEAN CORPUSCULAR VOLUME 94.7 fl (82.0-101.0); MONOCYTE # 0.9 10^3/ul (0.3-0.9); MONOCYTES % 9.4 % (0.0-11.0); NEUTROPHIL # 4.1 10^3/ul (1.6-7.5); PLATELET COUNT 333 10^3/UL (140-415); RED CELL DISTRIBUTION WIDTH 11.9 % (11.5-14.5)
[2018-12-12 05:58] LABS: WHITE BLOOD COUNT 9.2 10^3/ul (4.8-10.8)
[2018-12-12 06:08] LABS: POSITIVE DIFF @See below
[2018-12-12 06:19] LABS: CREATINE KINASE 53 IU/L (23-200)
[2018-12-12 06:24] LABS: ANION GAP 6 (5-13); BLOOD UREA NITROGEN 27 mg/dl (7-20); CALCIUM 9.4 mg/dl (8.4-10.2); CARBON DIOXIDE 29 mmol/L (21-31); CHLORIDE 102 mmol/L (97-110); CREATININE 1.35 mg/dl (0.44-1.00); Estimated GFR 41 mL/min (>60); GLUCOSE 94 mg/dl (70-220); SODIUM 137 mmol/L (135-144)
[2018-12-12] MEDS: PANTOPRAZOLE (EC) 40 MG TAB PO (06:34)
[2018-12-12] MEDS: SOD CHLORIDE 0.45% 1,000 ML IV ×3 (06:48→21:06)
[2018-12-12] MEDS: DAKINS 0.0125%(1/40) 473 ML SOLUTION TP ×3 (07:00→21:56)
[2018-12-12] MEDS: DOCUSATE SODIUM 100 MG CAP PO (08:50)
[2018-12-12] MEDS: HYDROCHLOROTHIAZIDE 12.5 MG CAP PO (08:50)
[2018-12-12] MEDS: BENAZEPRIL 20 MG TAB PO (08:50)
[2018-12-12] MEDS: MUPIROCIN 2% 22 GM OINT TOP ×2 (08:50→21:56)
[2018-12-12] MEDS ORDERED: DIPHENHYDRAMINE 25 MG CAP PO (14:00)
[2018-12-12] MEDS: DAPTOMYCIN IVPB (14:47)
[2018-12-12] MEDS: SOD CHLORIDE 0.9% IVPB (14:47)
[2018-12-12] MEDS: HYDROCORTISONE 1% 28 GM CR TOP (21:55)
[2018-12-13] MEDS: SOD CHLORIDE 0.45% 1,000 ML IV ×2 (02:20→21:35)
[2018-12-13] MEDS: PANTOPRAZOLE (EC) 40 MG TAB PO (05:16)
[2018-12-13] MEDS: HYDROCODONE/APAP (5/325) TAB PO ×5 (05:16→22:55)
[2018-12-13 06:13] LABS: ABNORMAL IP MESSAGE 1; HEMATOCRIT 30.8 % (37.0-47.0); HEMOGLOBIN 10.3 g/dl (12.0-16.0); MEAN CORPUSCULAR HEMOGLOBIN 31.8 pg (29.0-33.0); MEAN CORPUSCULAR HGB CONC 33.4 g/dl (32.0-37.0); MEAN CORPUSCULAR VOLUME 95.1 fl (82.0-101.0); MEAN PLATELET VOLUME 7.9 fl (7.4-10.4); PLATELET COUNT 370 10^3/UL (140-415); RED BLOOD COUNT 3.24 10^6/ul (4.20-5.40); RED CELL DISTRIBUTION WIDTH 11.8 % (11.5-14.5)
[2018-12-13 06:13] LABS: WHITE BLOOD COUNT 10.2 10^3/ul (4.8-10.8)
[2018-12-13 07:02] LABS: ANION GAP 7 (5-13); BLOOD UREA NITROGEN 32 mg/dl (7-20); CALCIUM 9.3 mg/dl (8.4-10.2); CARBON DIOXIDE 29 mmol/L (21-31); CHLORIDE 101 mmol/L (97-110); CREATININE 1.31 mg/dl (0.44-1.00); Estimated GFR 42 mL/min (>60); GLUCOSE 85 mg/dl (70-220); POTASSIUM 4.1 mmol/L (3.5-5.1); SODIUM 137 mmol/L (135-144)
[2018-12-13 07:33] LABS: ADD MAN DIFF? YES; POSITIVE DIFF @See below
[2018-12-13] MEDS: BENAZEPRIL 20 MG TAB PO (08:33)
[2018-12-13] MEDS: HYDROCHLOROTHIAZIDE 12.5 MG CAP PO (08:33)
[2018-12-13] MEDS: HYDROCORTISONE 1% 28 GM CR TOP ×2 (08:33→21:35)
[2018-12-13] MEDS: MUPIROCIN 2% 22 GM OINT TOP ×2 (08:35→21:31)
[2018-12-13] MEDS: DAKINS 0.0125%(1/40) 473 ML SOLUTION TP ×2 (08:36→21:32)
[2018-12-13] MEDS: DOCUSATE SODIUM 100 MG CAP PO (08:39)
[2018-12-13 10:44] LABS: BAND NEUTROPHILS #M 0.3 10^3/ul (0.0-0.6); BAND NEUTROPHILS % (M) 3 % (0-4); BASOPHIL #M 0.1 10^3/ul (0.0-0.0); BASOPHILS % (M) 1 % (0-2); EOSINOPHILS % (M) 29 % (0-7); LYMPHOCYTES #M 1.7 10^3/ul (0.8-2.9); LYMPHOCYTES % (M) 17 % (15-51); MONOCYTE #M 0.3 10^3/ul (0.3-0.9); MONOCYTES % (M) 3 % (0-11); PLATELET ESTIMATE NORMAL; POIKILOCYTOSIS 1+ (0-0); POLYCHROMASIA 3+ (0-0); SEG NEUT #M 4.8 10^3/ul (1.6-7.5); SEGMENTED NEUTROPHILS (M) % 47 % (39-77); SMUDGE%M 2 % (0-0)
[2018-12-13] MEDS: DAPTOMYCIN IVPB (14:20)
[2018-12-13] MEDS: SOD CHLORIDE 0.9% IVPB (14:20)
[2018-12-14] MEDS: HYDROCODONE/APAP (5/325) TAB PO ×4 (05:46→20:11)
[2018-12-14] MEDS: PANTOPRAZOLE (EC) 40 MG TAB PO (05:46)
[2018-12-14 05:59] LABS: ANION GAP 7 (5-13); BLOOD UREA NITROGEN 33 mg/dl (7-20); CALCIUM 9.4 mg/dl (8.4-10.2); CARBON DIOXIDE 28 mmol/L (21-31); CHLORIDE 102 mmol/L (97-110); CREATININE 1.22 mg/dl (0.44-1.00); Estimated GFR 46 mL/min (>60); GLUCOSE 104 mg/dl (70-220); SODIUM 137 mmol/L (135-144)
[2018-12-14] MEDS: DOCUSATE SODIUM 100 MG CAP PO (09:21)
[2018-12-14] MEDS: BENAZEPRIL 20 MG TAB PO (09:22)
[2018-12-14] MEDS: HYDROCHLOROTHIAZIDE 12.5 MG CAP PO (09:22)
[2018-12-14] MEDS: MUPIROCIN 2% 22 GM OINT TOP ×2 (09:23→21:15)
[2018-12-14] MEDS: DAKINS 0.0125%(1/40) 473 ML SOLUTION TP ×2 (09:23→21:16)
[2018-12-14] MEDS: HYDROCORTISONE 1% 28 GM CR TOP ×2 (09:23→21:15)
[2018-12-14] MEDS: SOD CHLORIDE 0.9% IVPB (15:46)
[2018-12-14] MEDS: DAPTOMYCIN IVPB (15:46)
[2018-12-15] MEDS: PANTOPRAZOLE (EC) 40 MG TAB PO (05:40)
[2018-12-15] MEDS: HYDROCODONE/APAP (5/325) TAB PO ×4 (05:40→20:52)
[2018-12-15 06:37] LABS: ANION GAP 6 (5-13); BLOOD UREA NITROGEN 30 mg/dl (7-20); CARBON DIOXIDE 29 mmol/L (21-31); CHLORIDE 102 mmol/L (97-110); CREATININE 1.05 mg/dl (0.44-1.00); Estimated GFR 55 mL/min (>60); GLUCOSE 86 mg/dl (70-220); POTASSIUM 4.6 mmol/L (3.5-5.1); SODIUM 137 mmol/L (135-144)
[2018-12-15] MEDS: HYDROCHLOROTHIAZIDE 12.5 MG CAP PO (08:30)
[2018-12-15] MEDS: BENAZEPRIL 20 MG TAB PO (08:31)
[2018-12-15] MEDS: HYDROCORTISONE 1% 28 GM CR TOP ×2 (08:33→21:33)
[2018-12-15] MEDS: DOCUSATE SODIUM 100 MG CAP PO (08:33)
[2018-12-15] MEDS: DAKINS 0.0125%(1/40) 473 ML SOLUTION TP ×2 (08:33→21:32)
[2018-12-15] MEDS: MUPIROCIN 2% 22 GM OINT TOP ×2 (08:33→21:33)
[2018-12-15] MEDS: SOD CHLORIDE 0.9% IVPB (15:11)
[2018-12-15] MEDS: DAPTOMYCIN IVPB (15:11)
[2018-12-16] MEDS: PANTOPRAZOLE (EC) 40 MG TAB PO (05:31)
[2018-12-16] MEDS: HYDROCODONE/APAP (5/325) TAB PO ×3 (05:31→18:36)
[2018-12-16 06:44] LABS: ANION GAP 8 (5-13); BLOOD UREA NITROGEN 28 mg/dl (7-20); CALCIUM 9.8 mg/dl (8.4-10.2); CARBON DIOXIDE 31 mmol/L (21-31); CHLORIDE 100 mmol/L (97-110); CREATININE 1.16 mg/dl (0.44-1.00); Estimated GFR 49 mL/min (>60); GLUCOSE 87 mg/dl (70-220); POTASSIUM 3.9 mmol/L (3.5-5.1); SODIUM 139 mmol/L (135-144)
[2018-12-16] MEDS: DOCUSATE SODIUM 100 MG CAP PO (08:32)
[2018-12-16] MEDS: HYDROCORTISONE 1% 28 GM CR TOP ×2 (08:32→20:56)
[2018-12-16] MEDS: BENAZEPRIL 20 MG TAB PO (08:33)
[2018-12-16] MEDS: HYDROCHLOROTHIAZIDE 12.5 MG CAP PO (08:33)
[2018-12-16] MEDS: DAKINS 0.0125%(1/40) 473 ML SOLUTION TP ×2 (08:34→20:57)
[2018-12-16] MEDS: MUPIROCIN 2% 22 GM OINT TOP ×2 (08:35→21:45)
[2018-12-16] MEDS: DOXYCYCLINE 100 MG TAB PO (20:55)
[2018-12-17] MEDS: PANTOPRAZOLE (EC) 40 MG TAB PO (05:42)
[2018-12-17] MEDS: HYDROCODONE/APAP (5/325) TAB PO ×3 (05:44→20:33)
[2018-12-17 07:09] LABS: ANION GAP 9 (5-13); BLOOD UREA NITROGEN 32 mg/dl (7-20); CALCIUM 9.8 mg/dl (8.4-10.2); CARBON DIOXIDE 31 mmol/L (21-31); CHLORIDE 99 mmol/L (97-110); CREATININE 1.25 mg/dl (0.44-1.00); Estimated GFR 45 mL/min (>60); GLUCOSE 87 mg/dl (70-220); SODIUM 139 mmol/L (135-144)
[2018-12-17] MEDS: BENAZEPRIL 20 MG TAB PO (09:00)
[2018-12-17] MEDS: HYDROCHLOROTHIAZIDE 12.5 MG CAP PO (09:00)
[2018-12-17] MEDS: MUPIROCIN 2% 22 GM OINT TOP ×2 (09:15→20:14)
[2018-12-17] MEDS: DOCUSATE SODIUM 100 MG CAP PO (09:15)
[2018-12-17] MEDS: DOXYCYCLINE 100 MG TAB PO ×2 (09:15→20:14)
[2018-12-17] MEDS: DAKINS 0.0125%(1/40) 473 ML SOLUTION TP ×2 (09:15→20:15)
[2018-12-17] MEDS: HYDROCORTISONE 1% 28 GM CR TOP ×2 (09:16→20:15)
== END 2018-12-17 20:30 | disposition home health service (06) | DRG 901 ==
LOC: E/R 12:52 → PP2 14:26
PROC: 0JB60ZZ Excision of Chest Subcutaneous Tissue and Fascia, Open Approach (ICD-10-PCS; principal; 2018-12-09 14:00)
PROC: 0JX Subcutaneous Tissue and Fascia, Transfer (ICD-10-PCS; 2018-12-09 14:00)
PROC: 0JXC3ZC Transfer Pelvic Region Subcutaneous Tissue and Fascia with Skin, Subcutaneous Tissue and Fascia, Percutaneous Approach (ICD-10-PCS; 2018-12-09 14:00)
PROC: 0YB63ZZ Excision of Left Inguinal Region, Percutaneous Approach (ICD-10-PCS; 2018-12-09 14:00)
DX: T81.31XA Disruption of external operation (surgical) wound, not elsewhere classified, initial encounter (principal); N17.0 Acute kidney failure with tubular necrosis; I96 Gangrene, not elsewhere classified; I10 Essential (primary) hypertension; C50.912 Malignant neoplasm of unspecified site of left female breast; Z22.322 Carrier or suspected carrier of Methicillin resistant Staphylococcus aureus; B95.62 Methicillin resistant Staphylococcus aureus infection as the cause of diseases classified elsewhere; L76.82 Other postprocedural complications of skin and subcutaneous tissue
CPT/HCPCS: 36415; 80048; 80202; 82550; 82565; 84520; 84703; 85025; 87070; 87081; 88304; 99285-25